=== PATIENT | female | born 1960 | race Hispanic/Latino ===

== ENCOUNTER 2018-06-14 13:30 | Emergency (ER) | payer SELFPAY ==
[2018-06-14 13:49] LABS: BASOPHILS % (AUTO) 0.7 % (0.0-5.0); EOSINOPHILS % (AUTO) 0.6 % (0.0-8.0); HEMATOCRIT 37.4 % (36-48); LYMPHOCYTES % (AUTO) 26.6 % (21.0-51.0); MEAN CORPUSCULAR HEMOGLOBIN 29.7 pg (27.0-33.0); MEAN CORPUSCULAR HGB CONC 33.8 g/dL (32.0-36.0); MEAN CORPUSCULAR VOLUME 87.7 fL (79-99); MONOCYTES % (AUTO) 7.3 % (3.0-13.0); NEUTROPHILS % (AUTO) 64.8 % (40.0-77.0); NUCLEATED RED BLOOD CELLS 0.1 % (0.0-0.19); PLATELET COUNT (AUTO) 204 K/uL (130-400); RED BLOOD CELL COUNT(AUTO) 4.27 MIL/uL (4.00-5.50); RED CELL DISTRIBUTION WIDTH 13.3 % (11.0-15.5); WHITE BLOOD COUNT (AUTO) 7.7 K/uL (4.8-10.8)
[2018-06-14 13:53] LABS: APPEARANCE,URINE Clear (CLEAR); BILIRUBIN,URINE Negative (NEGATIVE); COLOR,URINE Yellow (YELLOW); GLUCOSE, URINE (UA) Negative (NEGATIVE); KETONES,URINE Negative (NEGATIVE); LEUKOCYTE ESTERASE ,URINE Negative (NEGATIVE); NITRATE,URINE Negative (NEGATIVE); OCCULT BLOOD,URINE Negative (NEGATIVE); PROTEIN,URINE POS 1+ mg/dL (NEGATIVE); UROBILINOGEN,URINE 0.2 mg/dL (0.2-1.0)
[2018-06-14 13:58] LABS: CREATININE 1.2 mg/dL (0.5-1.5); POTASSIUM 3.1 mmol/L (3.5-5.1)
[2018-06-14 14:02] LABS: BILIRUBIN,TOTAL 0.4 mg/dL (0.2-1.0); TOTAL PROTEIN, SERUM 8.1 g/dL (6.0-8.3)
[2018-06-14 14:09] LABS: BACTERIA,URINE None Seen /HPF (None Seen); RBC,URINE 0-1 /HPF (0-1); WBC,URINE 0-1 /HPF (0-1)
[2018-06-14 14:10] LABS: SQUAMOUS EPITHELIAL CELL,UR 0-2 /HPF (0-2)
[2018-06-14] MEDS ORDERED: POTASSIUM CHLORIDE 20 MEQ ERTAB PO ONE (15:02)
== END 2018-06-14 15:54 | disposition home or self-care (01) ==
LOC: EDH 13:30
DX: E87.6 Hypokalemia (principal); M62.81 Muscle weakness (generalized)
CPT/HCPCS: 36415; 80053; 81001; 85025; 93005

== ENCOUNTER 2018-06-18 19:31 | Emergency (ER) | payer SELFPAY ==
[2018-06-18] MEDS ORDERED: ENALAPRILAT DIHYDRATE 1.25MG/ML 1ML VIAL IV ONE (19:54)
[2018-06-18] MEDS ORDERED: LISINOPRIL 5 MG TABLET ONE (19:55)
[2018-06-18 20:05] LABS: APPEARANCE,URINE Clear (CLEAR); BILIRUBIN,URINE Negative (NEGATIVE); COLOR,URINE Yellow (YELLOW); GLUCOSE, URINE (UA) Negative (NEGATIVE); KETONES,URINE Negative (NEGATIVE); LEUKOCYTE ESTERASE ,URINE Negative (NEGATIVE); NITRATE,URINE Negative (NEGATIVE); OCCULT BLOOD,URINE Trace (NEGATIVE); PH,URINE 7.5 (5.0-8.0); PROTEIN,URINE POS 1+ mg/dL (NEGATIVE); UROBILINOGEN,URINE 0.2 mg/dL (0.2-1.0)
[2018-06-18 20:11] LABS: CREATININE 1.4 mg/dL (0.5-1.5); POTASSIUM 4.3 mmol/L (3.5-5.1)
[2018-06-18 20:24] LABS: BACTERIA,URINE Rare /HPF (None Seen); RBC,URINE None Seen /HPF (0-1); SQUAMOUS EPITHELIAL CELL,UR 0-2 /HPF (0-2); WBC,URINE 0-1 /HPF (0-1)
[2018-06-18 20:26] LABS: T4 (THYROXINE) 11.6 ug/dL (4.7-13.3); THYROID STIMULATING HORMONE 3.03 uIU/mL (0.36-3.74)
[2018-06-18] MEDS ORDERED: METOPROLOL TARTRATE 1 MG/ML 5ML VIAL IV ONE (21:43)
[2018-06-18 22:25] LABS: AMPHET/METH SCREEN,URINE NEGATIVE (NEGATIVE); BARBITURATE SCREEN, URINE NEGATIVE (NEGATIVE); BENZODIAZEPINES SCREEN,URINE NEGATIVE (NEGATIVE); CANNABINOID SCREEN,URINE NEGATIVE (NEGATIVE); COCAINE SCREEN,URINE NEGATIVE (NEGATIVE); OPIATE SCREEN,URINE NEGATIVE (NEGATIVE); PHENCYCLIDINE SCREEN,URINE NEGATIVE (NEGATIVE)
[2018-06-18] MEDS ORDERED: CLONIDINE HCL 0.1 MG TABLET ONE (22:38)
[2018-06-18] MEDS ORDERED: HYDRALAZINE HCL 20 MG/ML VIAL ONE (22:39)
== END 2018-06-18 23:51 | disposition home or self-care (01) ==
LOC: EDH 19:31
DX: I16.0 Hypertensive urgency (principal); K21.9 Gastro-esophageal reflux disease without esophagitis
CPT/HCPCS: 36415; 70450; 71045; 80048; 80305; 81001; 84436; 84443; 84484; 93005; 96374; 96375; 99291; J0360; J3490 ×2

== ENCOUNTER 2018-09-10 02:56 | Emergency (ER) | payer OTHER ==
[~2018-09-10 02:56] MED LIST: LISI40TA4 PO; TYL3 PO; [UNRECOGNIZED DRUG - CODE] PO
[2018-09-10 03:17] LABS: APPEARANCE,URINE Clear (CLEAR); BILIRUBIN,URINE Negative (NEGATIVE); COLOR,URINE Yellow (YELLOW); GLUCOSE, URINE (UA) Negative (NEGATIVE); KETONES,URINE Negative (NEGATIVE); LEUKOCYTE ESTERASE ,URINE Negative (NEGATIVE); NITRATE,URINE Negative (NEGATIVE); OCCULT BLOOD,URINE Negative (NEGATIVE); PH,URINE 5.5 (5.0-8.0); PROTEIN,URINE POS 2+ mg/dL (NEGATIVE)
[2018-09-10 03:37] LABS: BASOPHILS % (AUTO) 0.7 % (0.0-5.0); EOSINOPHILS % (AUTO) 0.5 % (0.0-8.0); HEMATOCRIT 32.7 % (36-48); LYMPHOCYTES % (AUTO) 15.5 % (21.0-51.0); MEAN CORPUSCULAR HEMOGLOBIN 29.6 pg (27.0-33.0); MEAN CORPUSCULAR HGB CONC 33.4 g/dL (32.0-36.0); MEAN CORPUSCULAR VOLUME 88.7 fL (79-99); MONOCYTES % (AUTO) 5.8 % (3.0-13.0); NEUTROPHILS % (AUTO) 77.5 % (40.0-77.0); PLATELET COUNT (AUTO) 258 K/uL (130-400); RED BLOOD CELL COUNT(AUTO) 3.69 MIL/uL (4.00-5.50); RED CELL DISTRIBUTION WIDTH 14.5 % (11.0-15.5); WHITE BLOOD COUNT (AUTO) 11.3 K/uL (4.8-10.8)
[2018-09-10 03:52] LABS: INR 0.94 (0.85-1.15); PARTIAL THROMBOPLASTIN TIME 28.3 SEC (26.3-35.5); PROTHROMBIN TIME 9.9 SEC (9.6-11.6)
[2018-09-10 03:53] LABS: CREATININE 1.2 mg/dL (0.5-1.5); POTASSIUM 3.7 mmol/L (3.5-5.1)
[2018-09-10 03:58] LABS: ALBUMIN 3.7 g/dL (3.5-5.0); BILIRUBIN,TOTAL 0.2 mg/dL (0.2-1.0); TOTAL PROTEIN, SERUM 8.6 g/dL (6.0-8.3)
[2018-09-10] MEDS ORDERED: ONDANSETRON HCL 4 MG/2 ML VIAL ONE (04:13)
[2018-09-10] MEDS ORDERED: KETOROLAC TROMETHAMINE 30MG/ML ONE (04:13)
== END 2018-09-10 04:33 | disposition home or self-care (01) ==
LOC: EDH 02:56
DX: D25.9 Leiomyoma of uterus, unspecified (principal); I10 Essential (primary) hypertension; K21.9 Gastro-esophageal reflux disease without esophagitis; Z93.6 Other artificial openings of urinary tract status; Z79.899 Other long term (current) drug therapy
CPT/HCPCS: 36415; 74176; 80053; 81003; 82150; 82550; 84484; 85025; 85610; 85730; 93005; 96374; 96375; 99285; J1885; J2405

== ENCOUNTER 2018-10-30 06:49 | Day surgery (SDC) | payer MEDICAID ==
[2018-10-27 13:15] VITALS: BP 171/86
[2018-10-27 13:17] LABS: INR 0.92 (0.85-1.15); PARTIAL THROMBOPLASTIN TIME 25.9 SEC (26.3-35.5); PROTHROMBIN TIME 9.7 SEC (9.6-11.6)
--- NOTE | 2018-10-27 14:15 | NUR ---
UPDATED H/P WITH PLAN CALLED OFFICE OF [facility]. ([phone]) SPOKE WITH GHAZALA AND INFORMED HER THAT THE H&P DOES NOT HAVE A PLAN FOR THE PROCEDURE TO BE DONE (NEPHROSTOMY EXCHANGE). FAXED AN H&P FORM TO THE OFFICE ([phone])IN ORDER FOR [facility] TO UPDATE THE H&P WITH THE PLAN IN PLACE FOR THE PROCEDURE RO BE DONE.
[~2018-10-30] VITALS: Ht 152.4 cm; Wt 67.1 kg
[~2018-10-30 06:49] MED LIST changes: -TYL3 PO
[2018-10-30 07:03] VITALS: BP 166/87
[2018-10-30] MEDS ORDERED: SODIUM CHLORIDE 0.9% 1000ML 1,000 ML IV ONE (07:25)
[2018-10-30] MEDS ORDERED: SODIUM BICARB 50MEQ 50ML VIAL ONE (09:04)
[2018-10-30] MEDS ORDERED: LIDOCAINE HCL 1% MDV 50ML VIAL ONE (09:05)
[2018-10-30] MEDS ORDERED: IODIXANOL 320 MG/ML 100 ML VIAL ONE (09:05)
[2018-10-30 10:08] VITALS: BP 146/89
[2018-10-30 10:25] VITALS: BP 143/90
--- NOTE | 2018-10-30 10:43 | NUR ---
DISCHARGE PT DISCHARGED VIA WHEELCHAIR WITH SON. PT STABLE. NO COMPLAINTS MADE. NOT IN ANY APPARENT DISTRESS. NEPHROSTOMY TUBE DRAINING CLEAR YELLOW WITH JUST A VERY SLIGHT TINGE OF PINK NOTED, 100 ML.DRESSING LEFT FLANK DRY AND INTACT. DISCHARGE INSTRUCTIONS GIVEN TO P-T AND SON, VERBALIZED UNDERSTANDING.
== END 2018-10-30 10:43 | disposition home or self-care (01) ==
LOC: DAH 06:49
PROVIDERS: ATTEND Nurse Practitioner Family
DX: Z43.6 Encounter for attention to other artificial openings of urinary tract (principal); N13.2 Hydronephrosis with renal and ureteral calculous obstruction; I10 Essential (primary) hypertension; E66.8 Other obesity; Z68.30 Body mass index [BMI] 30.0-30.9, adult; Z79.899 Other long term (current) drug therapy; Z98.51 Tubal ligation status; Z82.49 Family history of ischemic heart disease and other diseases of the circulatory system; Z83.3 Family history of diabetes mellitus; Z82.3 Family history of stroke
CPT/HCPCS: 36415; 50435; 85610; 85730; A4215; A4216; A4221; A4222; A4223 ×3; A4606; C1729; C1769; J1644; J3490 ×2; J7030; Q9967

== ENCOUNTER 2018-11-02 08:54 | Emergency (ER) | payer MEDICAID ==
[2018-11-02] MEDS ORDERED: KETOROLAC TROMETHAMINE 30MG/ML ONE (09:37)
== END 2018-11-02 11:37 | disposition home or self-care (01) ==
LOC: EDH 08:54
DX: M54.42 Lumbago with sciatica, left side (principal); I10 Essential (primary) hypertension; K21.9 Gastro-esophageal reflux disease without esophagitis
CPT/HCPCS: 96374; 99284; J1885

== ENCOUNTER 2018-11-12 12:17 | Emergency (ER) | payer MEDICAID ==
[2018-11-12] MEDS ORDERED: ONDANSETRON HCL 4 MG/2 ML VIAL ONE ×2 (13:15→16:09)
[2018-11-12] MEDS ORDERED: MORPHINE SULFATE 4 MG/1ML SYG ONE (13:15)
[2018-11-12 13:27] LABS: BASOPHILS % (AUTO) 0.7 % (0.0-5.0); EOSINOPHILS % (AUTO) 0.3 % (0.0-8.0); HEMATOCRIT 31.8 % (36-48); LYMPHOCYTES % (AUTO) 14.8 % (21.0-51.0); MEAN CORPUSCULAR HEMOGLOBIN 30.3 pg (27.0-33.0); MEAN CORPUSCULAR HGB CONC 34.4 g/dL (32.0-36.0); MEAN CORPUSCULAR VOLUME 88.2 fL (79-99); MONOCYTES % (AUTO) 7.8 % (3.0-13.0); NEUTROPHILS % (AUTO) 76.4 % (40.0-77.0); PLATELET COUNT (AUTO) 148 K/uL (130-400); RED BLOOD CELL COUNT(AUTO) 3.61 MIL/uL (4.00-5.50); RED CELL DISTRIBUTION WIDTH 14.5 % (11.0-15.5); WHITE BLOOD COUNT (AUTO) 7.2 K/uL (4.8-10.8)
[2018-11-12 13:37] LABS: CREATININE 0.8 mg/dL (0.5-1.5); POTASSIUM 3.7 mmol/L (3.5-5.1)
[2018-11-12 13:42] LABS: ALBUMIN 3.6 g/dL (3.5-5.0); BILIRUBIN,TOTAL 0.3 mg/dL (0.2-1.0); TOTAL PROTEIN, SERUM 7.8 g/dL (6.0-8.3)
[2018-11-12 15:11] LABS: APPEARANCE,URINE CLOUDY (CLEAR); BILIRUBIN,URINE NEGATIVE (NEGATIVE); COLOR,URINE RED (YELLOW); GLUCOSE, URINE (UA) NEGATIVE (NEGATIVE); KETONES,URINE 5 mg/dL (NEGATIVE); LEUKOCYTE ESTERASE ,URINE TRACE (NEGATIVE); NITRATE,URINE POSITIVE (NEGATIVE); OCCULT BLOOD,URINE LARGE (NEGATIVE); PH,URINE 5.5 (5.0-8.0); PROTEIN,URINE 100 mg/dL (NEGATIVE)
[2018-11-12 15:26] LABS: BACTERIA,URINE None Seen /HPF (None Seen); RBC,URINE Full Field /HPF (0-1)
[2018-11-12 15:27] LABS: SQUAMOUS EPITHELIAL CELL,UR 0-2 /HPF (0-2)
[2018-11-12] MEDS ORDERED: CEFTRIAXONE SODIUM 1 GM ONE (16:09)
[2018-11-12] MEDS ORDERED: HYDRALAZINE HCL 20 MG/ML VIAL ONE (16:09)
[2018-11-12] MEDS ORDERED: KETOROLAC TROMETHAMINE 30MG/ML ONE (16:09)
[2018-11-12] MEDS ORDERED: SODIUM CHLORIDE 0.9% 1000ML 1,000 ML IV ONE (16:10)
== END 2018-11-12 16:50 | disposition home or self-care (01) ==
LOC: EDH 12:17
DX: N39.0 Urinary tract infection, site not specified (principal); I10 Essential (primary) hypertension; K21.9 Gastro-esophageal reflux disease without esophagitis; Z79.899 Other long term (current) drug therapy
CPT/HCPCS: 36415; 74176; 80053; 81001; 85025; 87088; 96374; 96375; 96376; 99285; J0360; J0696; J1885; J2270; J2405 ×2; J7030

== ENCOUNTER 2018-11-29 09:38 | Inpatient (IN) | payer MEDICAID ==
[~2018-11-29] VITALS: Ht 152.4 cm; Wt 63.2 kg
[2018-11-29] MEDS ORDERED: ONDANSETRON HCL 4 MG/2 ML VIAL ONE ×2 (10:12→14:02)
[2018-11-29] MEDS ORDERED: MORPHINE SULFATE 4 MG/1ML SYG ONE (10:12)
[2018-11-29] MEDS ORDERED: SODIUM CHLORIDE 0.9% 1000ML 1,000 ML IV ONE (10:13)
[2018-11-29 10:22] LABS: BASOPHILS % (AUTO) 0.5 % (0.0-5.0); EOSINOPHILS % (AUTO) 0.2 % (0.0-8.0); HEMATOCRIT 33.8 % (36-48); LYMPHOCYTES % (AUTO) 7.6 % (21.0-51.0); MEAN CORPUSCULAR HEMOGLOBIN 29.4 pg (27.0-33.0); MEAN CORPUSCULAR HGB CONC 33.5 g/dL (32.0-36.0); MEAN CORPUSCULAR VOLUME 87.7 fL (79-99); MONOCYTES % (AUTO) 4.6 % (3.0-13.0); NEUTROPHILS % (AUTO) 87.1 % (40.0-77.0); PLATELET COUNT (AUTO) 171 K/uL (130-400); RED BLOOD CELL COUNT(AUTO) 3.85 MIL/uL (4.00-5.50); RED CELL DISTRIBUTION WIDTH 13.9 % (11.0-15.5); WHITE BLOOD COUNT (AUTO) 9.5 K/uL (4.8-10.8)
[2018-11-29 10:38] LABS: CARBON DIOXIDE 27 mmol/L (21-32); CHLORIDE 104 mmol/L (101-111); CREATININE 1.1 mg/dL (0.5-1.5); GLOMERULAR FILTR. RATE CALC 54 mL/min (>60); GLUCOSE,RANDOM 114 mg/dL (70-105); POTASSIUM 4.2 mmol/L (3.5-5.1); SODIUM SERUM 140 mmol/L (136-145); UREA NITROGEN, BLOOD 17 mg/dL (7-18)
[2018-11-29 10:46] LABS: ALANINE AMINOTRANSFERASE 55 U/L (12-78); ALBUMIN 3.4 g/dL (3.5-5.0); ASPARTATE AMINOTRANSFERASE 33 U/L (10-37); BILIRUBIN,TOTAL 0.3 mg/dL (0.2-1.0)
[2018-11-29 10:53] LABS: LIPASE < 50 U/L (114-286)
[2018-11-29 11:26] LABS: APPEARANCE,URINE Clear (CLEAR); APPEARANCE,URINE Cloudy (CLEAR); BILIRUBIN,URINE Negative (NEGATIVE); COLOR,URINE Yellow (YELLOW); GLUCOSE, URINE (UA) Negative (NEGATIVE); KETONES,URINE Negative (NEGATIVE); LEUKOCYTE ESTERASE ,URINE Moderate (NEGATIVE); LEUKOCYTE ESTERASE ,URINE Trace (NEGATIVE); NITRATE,URINE Negative (NEGATIVE); OCCULT BLOOD,URINE Moderate (NEGATIVE); PH,URINE 5.5 (5.0-8.0); PROTEIN,URINE Negative (NEGATIVE); PROTEIN,URINE POS 1+ mg/dL (NEGATIVE); UROBILINOGEN,URINE 0.2 mg/dL (0.2-1.0)
[2018-11-29 11:36] LABS: BACTERIA,URINE Few /HPF (None Seen); RBC,URINE 0-1 /HPF (0-1); SQUAMOUS EPITHELIAL CELL,UR Rare /HPF (0-2); YEAST,URINE BUDDING Few /HPF (None Seen)
[2018-11-29 11:37] LABS: BACTERIA,URINE Rare /HPF (None Seen); SQUAMOUS EPITHELIAL CELL,UR Rare /HPF (0-2); WBC,URINE 0-1 /HPF (0-1)
[2018-11-29] MEDS ORDERED: MORPHINE SULFATE 2 MG/ML 1ML SYG ONE (14:02)
--- NOTE | 2018-11-29 17:00 | NUR ---
PATIENT ARRIVED FROM ER VIA STRETCHER. PT AAOX3. PAIN 2/10 DULL TO ABDOMEN AND BACK. NEPHROSTOMY TO LEFT SIDE. DRESSING CHANGED AT THIS TIME. PT ORIENTED TO ROOM. CALL LIGHT IN REACH. ADVISED PT TO CALL WITH ANY NEEDS OR CONCERNS.
[2018-11-29 17:11] VITALS: BP 132/71
[2018-11-29] MEDS ORDERED: ONDANSETRON HCL 4 MG/2 ML VIAL IVP PRN (17:15)
--- NOTE | 2018-11-29 19:20 | NUR ---
MD PACHECO ROUNDING ON PT. POC DISCUSSED. QUESTIONS INVITED AND ANSWERED.
[2018-11-29 19:29] VITALS: BP 156/75
--- NOTE | 2018-11-29 21:00 | NUR ---
Dr. Maher: Dr. Maher rounded see and talk to patient Plan of Care. Received verbal orders to start IV of NS at 65 ml/hour. Give patient Full liquid diet. She will be NPO breakfast on the as ordered by Dr. Savage.
--- NOTE | 2018-11-29 21:15 | NUR ---
Patient informed: Patient informed about the Surgery mentioned by Dr. Savage and she can eat full liquid diet.NPO breakfast on 12/01/18. Jello and apple juice given.
[2018-11-29] MEDS: SODIUM CHLORIDE 0.9% 1000ML 1,000 ML IV SCH (21:35)
[2018-11-29 23:23] VITALS: BP 134/70
[2018-11-30] MEDS: MORPHINE SULFATE 2 MG/ML 1ML SYG IVP PRN ×4 (00:26→21:10)
[2018-11-30 03:47] VITALS: BP 146/83
[2018-11-30 07:38] VITALS: BP 139/88
[2018-11-30] MEDS: LISINOPRIL 40 MG TABLET PO SCH (10:48)
[2018-11-30] MEDS: SODIUM CHLORIDE 0.9% 1000ML 1,000 ML IV SCH (10:59)
[2018-11-30 11:33] VITALS: BP 134/90
[2018-11-30] MEDS ORDERED: PEG 3350/NA SULF,BICARB,CL/KCL 4000 ML SOLN PO ONE (12:00)
--- NOTE | 2018-11-30 12:39 | NUR ---
DC PLAN VISITED WITH PATIENT. PATIENT LIVES WITH SPOUSE. INDEPENDENT ABLE TO PERFORM ADL'S. PATIENT HAS NO SERVICES OR DME'S. FEELS SAFE TO RETURN HOME. Addendum: 11/30/18 at 1240 by MONICA ANTHONY RN CM Amended: Links added.
--- NOTE | 2018-11-30 14:00 | NUR ---
MD REHMAN ROUNDING ON PATIENT. POC DISCUSSED. PATIENT VOICED UNDERSTANDING.
[2018-11-30] MEDS: CEFTRIAXONE SODIUM 1 GM IVP SCH (15:16)
[2018-11-30] MEDS: METRONIDAZOLE 500 MG TABLET PO SCH ×3 (16:19→23:41)
[2018-11-30] MEDS: NEOMYCIN SULFATE 500 MG TAB PO SCH ×3 (16:21→23:50)
[2018-11-30 19:20] VITALS: BP 129/70
[2018-11-30] MEDS: FAMOTIDINE 20MG TAB 20 MG TAB PO SCH (21:09)
[2018-11-30] MEDS ORDERED: MEPERIDINE-PF 50 MG/ML SYG IM PRN (21:30)
[2018-11-30] MEDS ORDERED: PROMETHAZINE HCL 25 MG/ML 1ML AMPULE IM PRN (21:30)
[2018-11-30 23:25] VITALS: BP 137/69
[2018-11-30] MEDS ORDERED: METRONIDAZOLE 500 MG TABLET ONE (23:34)
[2018-12-01] VITALS (27 sets, daily range): BP systolic 108–175; BP diastolic 65–97
[2018-12-01] MEDS: SODIUM CHLORIDE 0.9% 1000ML 1,000 ML IV SCH ×4 (02:18→23:47)
--- NOTE | 2018-12-01 06:20 | NUR ---
LEFT NEPHROSTOMY TUBE IN PLACE Addendum: 12/01/18 at 0624 by AURA BAZAN LVN Amended: Links added.
[2018-12-01] MEDS: FAMOTIDINE 20MG TAB 20 MG TAB PO SCH (08:41)
[2018-12-01] MEDS: LISINOPRIL 40 MG TABLET PO SCH (08:41)
[2018-12-01] MEDS: DILTIAZEM HCL 420 MG PO SCH (08:44)
[2018-12-01] MEDS ORDERED: LACTATED RINGERS 1000ML 1,000 ML IV ONE (08:57)
[2018-12-01] MEDS ORDERED: PROPOFOL 10 MG/ML 20ML VIAL IV ONE (09:12)
[2018-12-01] MEDS ORDERED: LIDOCAINE PF 2% 5ML ABBOJECT ONE (09:12)
[2018-12-01] MEDS ORDERED: MIDAZOLAM HCL 1 MG/ML 2ML VIAL ONE ×4 (09:12→11:34)
[2018-12-01] MEDS ORDERED: ROCURONIUM 10MG/1ML SYR 10 MG/ML ML ONE ×3 (09:13→11:56)
[2018-12-01] MEDS ORDERED: FENTANYL CITRATE PF 50 MCG/1 ML 5ML AMP IV ONE (09:13)
[2018-12-01] MEDS ORDERED: NEOSTIGMINE 5MG/5ML SYR IV ONE (09:43)
[2018-12-01] MEDS ORDERED: GLYCOPYRROLATE 1 MG/5 ML SYRINGE ONE (09:43)
[2018-12-01] MEDS ORDERED: ONDANSETRON HCL 4 MG/2 ML VIAL ONE (09:43)
[2018-12-01] MEDS ORDERED: DEXAMETHASONE SOD PHOSPHATE 10MG/ML 1ML VIAL ONE (09:43)
[2018-12-01] MEDS ORDERED: EPHEDRINE SULFATE 50 MG/ML AMPULE ONE (09:58)
[2018-12-01] MEDS ORDERED: ALBUMIN (HUMAN) 5% 500 ML IV ONE (10:22)
[2018-12-01] MEDS ORDERED: HETASTARCH IN 0.9 % NACL 500 ML IV ONE ×2 (10:47→11:39)
[2018-12-01 10:50] LABS: MEAN CORPUSCULAR HEMOGLOBIN 29.3 pg (27.0-33.0); MEAN CORPUSCULAR HGB CONC 32.4 g/dL (32.0-36.0); MEAN CORPUSCULAR VOLUME 90.4 fL (79-99); PLATELET COUNT (AUTO) 55 K/uL (130-400); RED BLOOD CELL COUNT(AUTO) 2.21 MIL/uL (4.00-5.50); RED CELL DISTRIBUTION WIDTH 13.7 % (11.0-15.5); WHITE BLOOD COUNT (AUTO) 14.5 K/uL (4.8-10.8)
--- NOTE | 2018-12-01 11:20 | NUR ---
Dr Savage notified of labs @1120 while performing procedure HGB=6.5 HCT=26.0 PLATELETS =55
[2018-12-01] MEDS ORDERED: COAGULATION FACTOR VIIA RECOMB 1 MG VIAL IV SCH (11:30)
[2018-12-01] MEDS ORDERED: CEFAZOLIN SODIUM 1 GM VIAL ONE (11:39)
[2018-12-01 11:41] LABS: ABG BASE EXCESS -8.4 mmol/L (-2.0-3.0); ABG HCO3 18.7 mmol/L (21.0-28.0); ABG OXYGEN SATURATION 84.1 % (95.0-99.0); ABG PCO2 46 mmHg (32-45)
[2018-12-01] MEDS ORDERED: SODIUM BICARB 8.4% 50ML SYRINGE ONE (11:48)
[2018-12-01 12:13] LABS: ABG BASE EXCESS 7.2 mmol/L (-2.0-3.0); ABG HCO3 30.8 mmol/L (21.0-28.0); ABG OXYGEN SATURATION 98.4 % (95.0-99.0); ABG PCO2 39 mmHg (32-45)
--- NOTE | 2018-12-01 12:15 | NUR ---
MD VISIT Dr. Calvin at bedside spoke with son and gave update on patients's status. Son made aware patient was transfused and made aware that she is very sick and will probably be transferred to ICU. son given opportunity to ask questions and answered.
[2018-12-01 12:31] LABS: INR 0.95 (0.85-1.15); PARTIAL THROMBOPLASTIN TIME 26.8 SEC (26.3-35.5)
[2018-12-01 12:35] LABS: ABG BASE EXCESS 5.1 mmol/L (-2.0-3.0); ABG HCO3 29.7 mmol/L (21.0-28.0); ABG OXYGEN SATURATION 98.6 % (95.0-99.0); ABG PCO2 44 mmHg (32-45)
[2018-12-01] MEDS ORDERED: IODIXANOL 320 MG/ML 100 ML VIAL ONE ×3 (12:36→13:06)
[2018-12-01] MEDS ORDERED: LIDOCAINE HCL 1% MDV 50ML VIAL ONE (12:37)
[2018-12-01 12:47] LABS: BASOPHILS % (AUTO) 0.3 % (0.0-5.0); HEMATOCRIT 25.6 % (36-48); LYMPHOCYTES % (AUTO) 4.9 % (21.0-51.0); MEAN CORPUSCULAR HEMOGLOBIN 29.4 pg (27.0-33.0); MEAN CORPUSCULAR HGB CONC 34.7 g/dL (32.0-36.0); MEAN CORPUSCULAR VOLUME 84.8 fL (79-99); NEUTROPHILS % (AUTO) 88.8 % (40.0-77.0); PLATELET COUNT (AUTO) 126 K/uL (130-400); RED BLOOD CELL COUNT(AUTO) 3.02 MIL/uL (4.00-5.50); RED CELL DISTRIBUTION WIDTH 15.4 % (11.0-15.5); WHITE BLOOD COUNT (AUTO) 7.8 K/uL (4.8-10.8)
[2018-12-01 12:57] LABS: CREATININE 0.8 mg/dL (0.5-1.5); POTASSIUM 3.6 mmol/L (3.5-5.1)
[2018-12-01 12:59] LABS: ALBUMIN 2.2 g/dL (3.5-5.0); BILIRUBIN,TOTAL 0.7 mg/dL (0.2-1.0); TOTAL PROTEIN, SERUM 4.3 g/dL (6.0-8.3)
[2018-12-01 13:14] LABS: ABG BASE EXCESS 2.8 mmol/L (-2.0-3.0); ABG HCO3 28.3 mmol/L (21.0-28.0); ABG OXYGEN SATURATION 98.6 % (95.0-99.0); ABG PCO2 48 mmHg (32-45)
--- NOTE | 2018-12-01 13:55 | NUR ---
DR. REYES IN TO TALK TO FAMILY OF PATIENT AND SPOKE TO TWO OF HER SONS AND ALLOWED FAMILY TO ASK QUESTIONS. SONS INFORMED OF CRITICAL STATE OF PATIENT AND PATIENT WILL BE GOING TO INTENSIVE CARE UNIT AND WILL BE FOLLOWED BY SEVERAL DOCTORS. NURSE HOME CARE [facility], LEANDRO MACKEY WILL BE TAKING FAMILY TO INTENSIVE CARE TO WAIT FOR PATIENT TO BE TRANSFERED THERE.
[2018-12-01] MEDS: NEOMYCIN SULFATE 500 MG TAB PO SCH ×2 (14:00→21:00)
--- NOTE | 2018-12-01 14:20 | NUR ---
DR. RUIZ WAS CALLED PER DR. REYES'S ORDER TO NOTIFY HIM OF PATIENT'S TRANSFER TO ICU. DR. RUIZ WAS CALLED AND INDICATED TO NOTIFY [facility]. CALLED [employer], JENNA CARTER RN TO FIND OUT WHO WAS [facility] AND INDICATED THEY HAD ALREADY BEEN NOTIFIED BY OTHER DOCTOR ON CASE.
--- NOTE | 2018-12-01 14:20 | NUR ---
Physician Traying Dr. Savage at bedside when patient arrived at 1420. Addendum: 12/01/18 at 1541 by ROBBIN SAUCEDO RN Dr. Buckner called for orders and were inputed as ordered Addendum: 12/01/18 at 1545 by ROBBIN SAUCEDO RN Dr. Anderson called at 1532 notified of consult
[2018-12-01] MEDS ORDERED: FENTANYL 2500MCG+NS 250ML 250 ML IV ONE (14:26)
[2018-12-01] MEDS ORDERED: LIDOCAINE HCL-MPF 1% 2ML VIAL IV PRN (14:45)
[2018-12-01 15:40] LABS: HEMATOCRIT 31.9 % (36-48); MEAN CORPUSCULAR HEMOGLOBIN 29.3 pg (27.0-33.0); MEAN CORPUSCULAR HGB CONC 35.1 g/dL (32.0-36.0); MEAN CORPUSCULAR VOLUME 83.6 fL (79-99); PLATELET COUNT (AUTO) 156 K/uL (130-400); RED BLOOD CELL COUNT(AUTO) 3.81 MIL/uL (4.00-5.50); RED CELL DISTRIBUTION WIDTH 15.6 % (11.0-15.5); WHITE BLOOD COUNT (AUTO) 8.5 K/uL (4.8-10.8)
[2018-12-01] MEDS: MIDAZOLAM 100MG-0.9% NS 100ML 100 ML IV PRN (15:46)
[2018-12-01] MEDS: METRONIDAZOLE 500 MG TABLET PO SCH (15:52)
[2018-12-01] MEDS: CEFTRIAXONE SODIUM 1 GM IVP SCH (15:52)
[2018-12-01 15:57] LABS: INR 0.89 (0.85-1.15); POTASSIUM 3.1 mmol/L (3.5-5.1); PROTHROMBIN TIME 9.4 SEC (9.6-11.6)
[2018-12-01 16:01] LABS: ALBUMIN 3.4 g/dL (3.5-5.0); BILIRUBIN,TOTAL 1.7 mg/dL (0.2-1.0); TOTAL PROTEIN, SERUM 6.5 g/dL (6.0-8.3)
[2018-12-01] MEDS: MAGNESIUM 2GM PREMIX 50ML 50 ML IV PRN (16:34)
[2018-12-01] MEDS: POTASSIUM CHLORIDE 20MEQ/100ML 100 ML IV PRN ×2 (16:34→18:37)
[2018-12-01 16:43] LABS: ABG BASE EXCESS 4.7 mmol/L (-2.0-3.0); ABG OXYGEN SATURATION 97.1 % (95.0-99.0); ABG PCO2 26 mmHg (32-45)
[2018-12-01 16:52] LABS: LYMPHOCYTES % (MANUAL) 6 % (22-44); MAN.DIFF COMMENT-IMPRESSION MANUAL DIFFERENTIAL; MONOCYTES % (MANUAL) 6 % (2-9); SEGMENTED NEUTROPHILS % 88 % (40-70)
[2018-12-01 16:53] LABS: PLATELET MORPHOLOGY COMMENT ADEQUATE
--- NOTE | 2018-12-01 16:58 | NUR ---
CM note met with patients olvin Roque and family who state are requesting for son Jose Roque who is currently 3rd green party contractor for a [employer] in [facility]. he corporate office is [phone] Dept D. he is on [facility] working for the [employer]. call made to Radha gayle at [facility] [phone] and updated on pt's condition critical and also request for son to come and visit pt. due to current condition. states she will start the process in order to facilitate and provided CASE # [id number]. states to provide to family as well and they can call to find out the status of request. provide information to olvin Dorantes and verbalizes understanding. updated primary nurse on above.
[2018-12-01] MEDS: PHARMACY COMMUNICATION MISC SCH ×2 (19:15→23:15)
--- NOTE | 2018-12-01 19:20 | NUR ---
Received bedside report pt is intubated and Sedated S/P TaHBSO today and was given multiple blood products.Potassium coverage ongoing at this time.Family here to bedside.Abdominal dressing noted to have some oozing and as per outgoing nurse surgeon is aware.Wiull continue to monitor pt.
--- NOTE | 2018-12-01 19:50 | NUR ---
Pt. noted to be moving arms and both feet will titrate up the fentanyl drip.Son to bedside.Will continue to monitor pt.
[2018-12-01] MEDS: PANTOPRAZOLE 40 MG/VIAL IVP SCH (21:59)
[2018-12-01] MEDS: METRONIDAZOLE 500MG/100ML BAG 100 ML IV SCH (22:00)
[2018-12-01 22:42] LABS: HEMATOCRIT 36.7 % (36-48)
[2018-12-01 22:49] LABS: MAGNESIUM 1.9 mg/dL (1.80-2.40); POTASSIUM 3.8 mmol/L (3.5-5.1)
[2018-12-01 23:38] LABS: PARTIAL THROMBOPLASTIN TIME 22.9 SEC (26.3-35.5); PROTHROMBIN TIME 10.5 SEC (9.6-11.6)
[2018-12-02] VITALS (70 sets, daily range): BP systolic 76–147; BP diastolic 48–123
[2018-12-02] MEDS: MIDAZOLAM 100MG-0.9% NS 100ML 100 ML IV PRN ×3 (00:21→19:23)
[2018-12-02] MEDS: FENTANYL 2500MCG+NS 250ML 250 ML IV PRN ×3 (00:21→21:25)
[2018-12-02 00:22] LABS: CORRECTED WHITE BLOOD COUNT 9.7 K/uL (4.5-11.0); RED BLOOD CELL COUNT(AUTO) 4.44 MIL/uL (4.00-5.50); WHITE BLOOD COUNT (AUTO) 9.7 K/uL (4.8-10.8)
[2018-12-02 00:23] LABS: BASOPHILS % (AUTO) 0.1 % (0.0-5.0); EOSINOPHILS % (AUTO) 0.1 % (0.0-8.0); LYMPHOCYTES % (AUTO) 5.1 % (21.0-51.0); MEAN CORPUSCULAR HEMOGLOBIN 29.2 pg (27.0-33.0); MEAN CORPUSCULAR HGB CONC 34.8 g/dL (32.0-36.0); MEAN CORPUSCULAR VOLUME 83.7 fL (79-99); MONOCYTES % (AUTO) 12.1 % (3.0-13.0); NEUTROPHILS % (AUTO) 82.6 % (40.0-77.0); PLATELET COUNT (AUTO) 168 K/uL (130-400); RED CELL DISTRIBUTION WIDTH 15.7 % (11.0-15.5)
[2018-12-02] MEDS: MAGNESIUM 2GM PREMIX 50ML 50 ML IV PRN (00:45)
--- NOTE | 2018-12-02 00:59 | NUR ---
HERACLIO Noland stoner out for [employer] was notified of critical lab result no new order received. was also paged pending to call back.
--- NOTE | 2018-12-02 01:50 | NUR ---
called back and notified of critical D-Dimer result and V/S no new order received.
[2018-12-02 04:17] LABS: BASOPHILS % (AUTO) 0.1 % (0.0-5.0); HEMATOCRIT 32.8 % (36-48); LYMPHOCYTES % (AUTO) 6.7 % (21.0-51.0); MEAN CORPUSCULAR HEMOGLOBIN 29.3 pg (27.0-33.0); MEAN CORPUSCULAR HGB CONC 34.8 g/dL (32.0-36.0); MEAN CORPUSCULAR VOLUME 84.4 fL (79-99); MONOCYTES % (AUTO) 11.7 % (3.0-13.0); NEUTROPHILS % (AUTO) 81.5 % (40.0-77.0); PLATELET COUNT (AUTO) 155 K/uL (130-400); RED BLOOD CELL COUNT(AUTO) 3.89 MIL/uL (4.00-5.50); RED CELL DISTRIBUTION WIDTH 15.8 % (11.0-15.5); WHITE BLOOD COUNT (AUTO) 11.6 K/uL (4.8-10.8)
[2018-12-02 04:29] LABS: PROTHROMBIN TIME 10.5 SEC (9.6-11.6)
[2018-12-02 04:32] LABS: B-TYPE NATRIURETIC PEPTIDE 134 pg/mL (0-100)
[2018-12-02 04:34] LABS: ALBUMIN 2.6 g/dL (3.5-5.0); CREATININE 1.5 mg/dL (0.5-1.5); MAGNESIUM 2.7 mg/dL (1.80-2.40); PHOSPHORUS 4.5 mg/dL (2.5-4.9); POTASSIUM 3.9 mmol/L (3.5-5.1); TOTAL PROTEIN, SERUM 5.4 g/dL (6.0-8.3)
--- NOTE | 2018-12-02 04:40 | NUR ---
Pt. appears more calm and comfortable,remained on fentanyl and versed drip.D-Dimer result is still critical but trending down.
[2018-12-02] MEDS: METRONIDAZOLE 500MG/100ML BAG 100 ML IV SCH ×3 (05:43→21:05)
[2018-12-02 06:51] LABS: ABG BASE EXCESS 3.6 mmol/L (-2.0-3.0); ABG HCO3 25.2 mmol/L (21.0-28.0); ABG OXYGEN SATURATION 98.4 % (95.0-99.0); ABG PCO2 30 mmHg (32-45)
--- NOTE | 2018-12-02 07:01 | NUR ---
Peak flow decreased from 65 to 55 in order to achieve shorter expiratory time. I:E from ~1:4 down to ~1:2.6 Addendum: 12/02/18 at 0703 by ALICIA ECHEVERRIA RT Amended: Links added.
[2018-12-02 08:21] LABS: HEMATOCRIT 33.7 % (36-48)
[2018-12-02] MEDS: PANTOPRAZOLE 40 MG/VIAL IVP SCH ×2 (08:58→21:07)
[2018-12-02] MEDS: SODIUM CHLORIDE 0.9% 1000ML 1,000 ML IV SCH (08:58)
[2018-12-02] MEDS: NEOMYCIN SULFATE 500 MG TAB PO SCH ×4 (08:58→21:07)
[2018-12-02] MEDS: DILTIAZEM HCL 420 MG PO SCH (09:00)
[2018-12-02] MEDS: LISINOPRIL 40 MG TABLET PO SCH (09:00)
--- NOTE | 2018-12-02 09:08 | NUR ---
PO meds held due to recent abdominal surgery pending rounding with physician and surgeon to addressed if okay to give meds through og tube Addendum: 12/02/18 at 0919 by ROBBIN SAUCEDO RN Dr. Janette carias at 0914. To asked about use of the NG tube for meds
--- NOTE | 2018-12-02 09:45 | NUR ---
Physician rounding Dr. Calvin at beside around 0936 ordered for a urine culture and blood cultures. Also stated it was okay to use the OG tube to administer medication. Addendum: 12/02/18 at 1025 by ROBBIN SAUCEDO RN Dr. Polk rounded at around 1000 informed status of the patient. no orders received. Addendum: 12/02/18 at 1027 by ROBBIN SAUCEDO RN [facility] rounded and reviewed plan of care. Was made aware about the patients signs of sepsis. she collaborated with Dr. Pagan and orders were entered.
[2018-12-02] MEDS: NOREPINEPHRINE 4MG/NS 250ML 250 ML IV SCH ×2 (11:46→22:52)
[2018-12-02] MEDS: MORPHINE SULFATE 2 MG/ML 1ML SYG IVP PRN (11:59)
[2018-12-02 12:30] LABS: HEMATOCRIT 29.9 % (36-48)
[2018-12-02] MEDS: CEFTRIAXONE SODIUM 1 GM IVP SCH (14:32)
[2018-12-02 16:33] LABS: HEMATOCRIT 29.7 % (36-48)
[2018-12-02 20:24] LABS: HEMATOCRIT 29.8 % (36-48)
[2018-12-03] VITALS (64 sets, daily range): BP systolic 91–135; BP diastolic 60–80
[2018-12-03 00:14] LABS: HEMATOCRIT 28.9 % (36-48)
[2018-12-03] MEDS: SODIUM CHLORIDE 0.9% 1000ML 1,000 ML IV SCH ×2 (02:11→22:55)
[2018-12-03 04:02] LABS: BASOPHILS % (AUTO) 0.1 % (0.0-5.0); HEMATOCRIT 28.8 % (36-48); LYMPHOCYTES % (AUTO) 11.8 % (21.0-51.0); MEAN CORPUSCULAR HGB CONC 33.7 g/dL (32.0-36.0); MEAN CORPUSCULAR VOLUME 85.8 fL (79-99); MONOCYTES % (AUTO) 8.6 % (3.0-13.0); NEUTROPHILS % (AUTO) 79.5 % (40.0-77.0); NUCLEATED RED BLOOD CELLS 0.1 % (0.0-0.19); PLATELET COUNT (AUTO) 164 K/uL (130-400); RED BLOOD CELL COUNT(AUTO) 3.36 MIL/uL (4.00-5.50); RED CELL DISTRIBUTION WIDTH 16.2 % (11.0-15.5); WHITE BLOOD COUNT (AUTO) 16.1 K/uL (4.8-10.8)
[2018-12-03 04:09] LABS: CREATININE 2.4 mg/dL (0.5-1.5); POTASSIUM 4.2 mmol/L (3.5-5.1)
[2018-12-03 04:14] LABS: ALBUMIN 2.1 g/dL (3.5-5.0); BILIRUBIN,TOTAL 0.4 mg/dL (0.2-1.0); MAGNESIUM 2.5 mg/dL (1.80-2.40); PHOSPHORUS 5.3 mg/dL (2.5-4.9); TOTAL PROTEIN, SERUM 5.3 g/dL (6.0-8.3)
[2018-12-03] MEDS: MIDAZOLAM 100MG-0.9% NS 100ML 100 ML IV PRN ×2 (06:21→17:35)
[2018-12-03] MEDS: METRONIDAZOLE 500MG/100ML BAG 100 ML IV SCH ×3 (06:21→21:02)
[2018-12-03 07:28] LABS: ABG BASE EXCESS -1.2 mmol/L (-2.0-3.0); ABG HCO3 21.5 mmol/L (21.0-28.0); ABG PCO2 31 mmHg (32-45)
[2018-12-03] MEDS: LISINOPRIL 40 MG TABLET PO SCH (08:05)
[2018-12-03] MEDS: DILTIAZEM HCL 420 MG PO SCH (08:05)
[2018-12-03] MEDS: NEOMYCIN SULFATE 500 MG TAB PO SCH ×3 (08:21→20:20)
[2018-12-03] MEDS: PANTOPRAZOLE 40 MG/VIAL IVP SCH ×2 (08:21→20:20)
[2018-12-03] MEDS: NOREPINEPHRINE 4MG/NS 250ML 250 ML IV SCH ×2 (08:21→23:46)
[2018-12-03] MEDS: FENTANYL 2500MCG+NS 250ML 250 ML IV PRN ×2 (08:22→20:09)
[2018-12-03] MEDS ORDERED: LACTATED RINGERS 1000ML IV SCH (12:45)
--- NOTE | 2018-12-03 12:55 | NUR ---
DR AVILA IN TO SPEAK WITH PATIENT'S FAMILY MEMBERS. PLAN FOR SURGERY TOMORROW. PLAN EXPLAINED AND ALL QUESTIONS ANSWERED. ASKED TO HAVE DR REYES NOTIFIED.
[2018-12-03] MEDS: LACTATED RINGERS 1000ML 1,000 ML IV SCH (13:18)
--- NOTE | 2018-12-03 13:34 | NUR ---
DR Jorgito HORNE PAGED VIA ANSWERING SERVICE. SPOKE TO ANIKA
[2018-12-03] MEDS: CEFTRIAXONE SODIUM 1 GM IVP SCH (15:29)
--- NOTE | 2018-12-03 18:48 | NUR ---
DR BARTON NOTIFIED OF TOMORROW'S SURGERY. NO NEW ORDERS.
[2018-12-03 21:45] LABS: HEMATOCRIT 27.9 % (36-48)
[2018-12-03] MEDS ORDERED: LACTATED RINGERS 1000ML 1,000 ML IV ONE (22:02)
--- NOTE | 2018-12-03 22:16 | NUR ---
Assumed care at 1900. AM shift reported scheduled procedure in AM. Consent has been obtained. Physicians have been notified. Of note, patient tachycardic since before change of shift. Patient repositioned, cleaned, dressings reinforced, and we are turning Q2 hours. [employer] has been notified. Merry Broderick ordered a 500mL LR bolus. Actively running. Will continue to monitor.
[2018-12-04] VITALS (72 sets, daily range): BP systolic 81–165; BP diastolic 48–82
[2018-12-04 03:47] LABS: HEMATOCRIT 27.1 % (36-48); MEAN CORPUSCULAR HEMOGLOBIN 28.9 pg (27.0-33.0); MEAN CORPUSCULAR HGB CONC 32.8 g/dL (32.0-36.0); MEAN CORPUSCULAR VOLUME 88.1 fL (79-99); PLATELET COUNT (AUTO) 156 K/uL (130-400); RED BLOOD CELL COUNT(AUTO) 3.07 MIL/uL (4.00-5.50); RED CELL DISTRIBUTION WIDTH 16.3 % (11.0-15.5); WHITE BLOOD COUNT (AUTO) 15.1 K/uL (4.8-10.8)
[2018-12-04 04:00] LABS: INR 0.95 (0.85-1.15); PARTIAL THROMBOPLASTIN TIME 28.2 SEC (26.3-35.5)
[2018-12-04 04:03] LABS: ALBUMIN 1.8 g/dL (3.5-5.0); BILIRUBIN,TOTAL 0.4 mg/dL (0.2-1.0); MAGNESIUM 2.3 mg/dL (1.80-2.40); PHOSPHORUS 4.2 mg/dL (2.5-4.9); POTASSIUM 4.5 mmol/L (3.5-5.1); TOTAL PROTEIN, SERUM 5.3 g/dL (6.0-8.3)
[2018-12-04 04:15] LABS: ABG HCO3 20.7 mmol/L (21.0-28.0); ABG OXYGEN SATURATION 95.5 % (95.0-99.0); ABG PCO2 37 mmHg (32-45)
[2018-12-04] MEDS: MIDAZOLAM 100MG-0.9% NS 100ML 100 ML IV PRN ×2 (04:51→14:50)
[2018-12-04] MEDS: METRONIDAZOLE 500MG/100ML BAG 100 ML IV SCH ×3 (05:08→20:37)
[2018-12-04 05:33] LABS: CREATININE,URINE RANDOM 174 mg/dL (30-135); SODIUM,URINE RANDOM 22 mmol/l (40-220)
[2018-12-04] MEDS: FENTANYL 2500MCG+NS 250ML 250 ML IV PRN ×2 (07:08→18:24)
[2018-12-04] MEDS: DILTIAZEM HCL 420 MG PO SCH (08:25)
[2018-12-04] MEDS: NEOMYCIN SULFATE 500 MG TAB PO SCH ×2 (08:25→13:26)
[2018-12-04] MEDS ORDERED: ZOSYN 3.375GM+NS 50ML 50 ML IV ONE (08:48)
[2018-12-04] MEDS: PANTOPRAZOLE 40 MG/VIAL IVP SCH ×2 (09:08→20:35)
[2018-12-04 11:02] LABS: APPEARANCE,URINE Turbid (CLEAR); BILIRUBIN,URINE Small (NEGATIVE); COLOR,URINE Dark Yellow (YELLOW); GLUCOSE, URINE (UA) Negative (NEGATIVE); KETONES,URINE Negative (NEGATIVE); LEUKOCYTE ESTERASE ,URINE Moderate (NEGATIVE); NITRATE,URINE Negative (NEGATIVE); OCCULT BLOOD,URINE Large (NEGATIVE); PROTEIN,URINE POS 1+ mg/dL (NEGATIVE); UROBILINOGEN,URINE 0.2 mg/dL (0.2-1.0)
[2018-12-04 11:03] LABS: APPEARANCE,URINE Turbid (CLEAR); BILIRUBIN,URINE Small (NEGATIVE); COLOR,URINE Dark Yellow (YELLOW); GLUCOSE, URINE (UA) Negative (NEGATIVE); KETONES,URINE Negative (NEGATIVE); LEUKOCYTE ESTERASE ,URINE Moderate (NEGATIVE); NITRATE,URINE Negative (NEGATIVE); OCCULT BLOOD,URINE Large (NEGATIVE); PROTEIN,URINE POS 2+ mg/dL (NEGATIVE)
[2018-12-04 11:20] LABS: BACTERIA,URINE Few /HPF (None Seen)
[2018-12-04 11:21] LABS: SQUAMOUS EPITHELIAL CELL,UR None Seen /HPF (0-2); YEAST,URINE BUDDING Many /HPF (None Seen)
[2018-12-04 11:25] LABS: BACTERIA,URINE Few /HPF (None Seen)
[2018-12-04] MEDS ORDERED: SODIUM CHLORIDE 0.9% 1000ML 1,000 ML IV SCH (11:30)
[2018-12-04] MEDS: NOREPINEPHRINE 4MG/NS 250ML 250 ML IV SCH (12:20)
[2018-12-04] MEDS: ZOSYN 3.375GM+NS 50ML 50 ML IV SCH ×2 (12:20→20:36)
[2018-12-04] MEDS ORDERED: PROPOFOL 10 MG/ML 20ML VIAL IV ONE (14:47)
[2018-12-04] MEDS ORDERED: ROCURONIUM 10MG/1ML SYR 10 MG/ML ML ONE ×2 (14:47→16:57)
--- NOTE | 2018-12-04 15:00 | NUR ---
PATIENT TO OR PATIENT TAKEN TO OR AT THIS TIME; FAMILY AT BEDSIDE
[2018-12-04 15:38] LABS: ABG BASE EXCESS -5.9 mmol/L (-2.0-3.0); ABG OXYGEN SATURATION 98.3 % (95.0-99.0); ABG PCO2 35 mmHg (32-45)
[2018-12-04] MEDS ORDERED: BACITRACIN 50,000 UNIT VIAL ONE (15:40)
[2018-12-04] MEDS ORDERED: FENTANYL CITRATE PF 50 MCG/1 ML 2ML VIAL ONE ×3 (15:55→17:27)
[2018-12-04] MEDS ORDERED: MEPERIDINE-PF 25 MG/ML SYG ONE (16:00)
[2018-12-04] MEDS ORDERED: PHENYLEPHRINE HCL 10 MG/ML 1ML VIAL IV ONE (16:09)
[2018-12-04 16:49] LABS: ABG BASE EXCESS -11.1 mmol/L (-2.0-3.0); ABG HCO3 14.5 mmol/L (21.0-28.0); ABG OXYGEN SATURATION 95.2 % (95.0-99.0); ABG PCO2 31 mmHg (32-45)
[2018-12-04] MEDS ORDERED: POTASSIUM CHLORIDE 20MEQ/100ML 100 ML IV ONE (17:08)
--- NOTE | 2018-12-04 18:00 | NUR ---
PATIENT ARRIVED FROM OR AT THIS TIME; LEFT RADIAL A LINE NOTED; WOUND VAC NOTED TO ABD; SEAL INTACT; OGT SET UP TO LIS; VS STABLE AT THIS TIME; WILL CONTINUE TO MONITOR
[2018-12-04] MEDS: LACTATED RINGERS 1000ML 1,000 ML IV SCH ×2 (18:10→20:37)
[2018-12-04 18:24] LABS: ABG HCO3 20.8 mmol/L (21.0-28.0); ABG OXYGEN SATURATION 98.2 % (95.0-99.0); ABG PCO2 37 mmHg (32-45)
[2018-12-04] MEDS ORDERED: PHARMACY COMMUNICATION MISC SCH (20:30)
[2018-12-05] VITALS (63 sets, daily range): BP systolic 82–164; BP diastolic 40–83
[2018-12-05 01:09] LABS: ABG BASE EXCESS -3.1 mmol/L (-2.0-3.0); ABG HCO3 21.4 mmol/L (21.0-28.0); ABG OXYGEN SATURATION 99.3 % (95.0-99.0); ABG PCO2 37 mmHg (32-45)
[2018-12-05] MEDS: ZOSYN 3.375GM+NS 50ML 50 ML IV SCH ×3 (03:56→21:49)
[2018-12-05] MEDS: METRONIDAZOLE 500MG/100ML BAG 100 ML IV SCH ×3 (04:44→21:49)
[2018-12-05] MEDS: LACTATED RINGERS 1000ML 1,000 ML IV SCH ×2 (05:01→19:52)
[2018-12-05 06:23] LABS: HEMATOCRIT 29.8 % (36-48)
[2018-12-05] MEDS: FENTANYL 2500MCG+NS 250ML 250 ML IV PRN ×3 (07:34→20:15)
[2018-12-05] MEDS: PANTOPRAZOLE 40 MG/VIAL IVP SCH ×2 (09:17→21:49)
[2018-12-05 12:43] LABS: HEMATOCRIT 27.6 % (36-48)
[2018-12-05] MEDS: MIDAZOLAM 100MG-0.9% NS 100ML 100 ML IV PRN (16:51)
[2018-12-05 19:32] LABS: HEMATOCRIT 26.7 % (36-48)
--- NOTE | 2018-12-05 19:36 | NUR ---
Nutrition Intervention: Nutrition screen based on LOS x 6 days. Pt. S/P Exp. Lap with excision of pelvic mass, sigmoidectomy/partial omentectomy. Pt. S/P Resp. failure requiring intubation on mech vent. Pt. NPO x 6 days. Pt. with OG tube to LIS. Pt. has Right CVC in place. Labs reviewed(Alb 1.8, BUN 34, Creat 2.0, GFR 27). LBM: 11/29/18, BS absent. SR-12, left nephrostomy. Recommendations: 1) Rec. TPN- Clinimix /15@50ml/hr. 2) Rec. 250ml 20% Intralipids on . 3) Request Lipid panel. 4) Continue to monitor pt's nutritional status. 5) Consult RD as nutrition concerns arise. Addendum: 12/05/18 at [address] Amended: Links added.
--- NOTE | 2018-12-05 20:00 | NUR ---
ASSESSMENT REMAINS ON VENT WITH ORDERED SETTINGS AND SEDATION. ASSESSMENT COMPLETED SEE FLOW SHEET. FAMILY MEMBER AT BEDSIDE AND ENCOURAGED TO CALL FOR WANTS OR NEEDS. Addendum: 12/05/18 at 2213 by CARIE LEWIS RN RN Amended: Links added.
[2018-12-06] VITALS (41 sets, daily range): BP systolic 102–190; BP diastolic 48–104
[2018-12-06] MEDS ORDERED: SODIUM CHLORIDE 0.9% 500ML 500 ML IV ONE (03:52)
[2018-12-06 04:12] LABS: HEMATOCRIT 27.5 % (36-48); MEAN CORPUSCULAR HEMOGLOBIN 29.8 pg (27.0-33.0); MEAN CORPUSCULAR HGB CONC 33.4 g/dL (32.0-36.0); PLATELET COUNT (AUTO) 156 K/uL (130-400); RED BLOOD CELL COUNT(AUTO) 3.09 MIL/uL (4.00-5.50); RED CELL DISTRIBUTION WIDTH 15.5 % (11.0-15.5); WHITE BLOOD COUNT (AUTO) 14.6 K/uL (4.8-10.8)
[2018-12-06 04:22] LABS: CREATININE 1.8 mg/dL (0.5-1.5); PHOSPHORUS 3.9 mg/dL (2.5-4.9); POTASSIUM 4.2 mmol/L (3.5-5.1)
[2018-12-06 04:27] LABS: BAND NEUTROPHILS % (MANUAL) 2 % (0-2); EOSINOPHILS % (MANUAL) 1 % (1-6); LYMPHOCYTES % (MANUAL) 8 % (22-44); MAN.DIFF COMMENT-IMPRESSION MANUAL DIFFERENTIAL; MONOCYTES % (MANUAL) 4 % (2-9); SEGMENTED NEUTROPHILS % 85 % (40-70)
[2018-12-06 05:01] LABS: ABG BASE EXCESS -3.5 mmol/L (-2.0-3.0); ABG HCO3 21.2 mmol/L (21.0-28.0); ABG OXYGEN SATURATION 98.5 % (95.0-99.0); ABG PCO2 38 mmHg (32-45)
[2018-12-06] MEDS: ZOSYN 3.375GM+NS 50ML 50 ML IV SCH ×3 (05:26→20:53)
[2018-12-06] MEDS: FENTANYL 2500MCG+NS 250ML 250 ML IV PRN (05:26)
[2018-12-06] MEDS: METRONIDAZOLE 500MG/100ML BAG 100 ML IV SCH ×3 (05:26→22:02)
--- NOTE | 2018-12-06 09:13 | NUR ---
CHART CHECK COMPLETED. Pt IS A 58 YEAR OLD FEMALE ADMITTED SECONDARY TO ABDOMINAL PAIN. Pt WITH PELVIC MASS AND SURGICAL REMOVAL THIS ADMISSION. Pt WITH DIC. Pt CURRENTLY ON MECHANICAL VENTILATION AND NG TUBE IN PLACE. Pt HAS A PAST MEDICAL HISTORY SIGNIFICANT FOR HYPERTENSION AND HYSTERECTOMY. RECOMMEND SKILLED SPEECH THERAPY EVALUATION 24 HOURS POST EXTUBATION. STILL CLEANER TUBE TO FOLLOW UP WITH Pt. Addendum: 12/06/18 at [address] Amended: Links added.
[2018-12-06] MEDS: PANTOPRAZOLE 40 MG/VIAL IVP SCH ×2 (09:29→20:53)
--- NOTE | 2018-12-06 09:30 | NUR ---
Emotional support SW visited with pt's son Pa at bedside. Son states he is pt's 4th son, she has 5 sons. Son reports brother from [place] has arrived and and they are waiting on brother to arrive from [facility]. Son states pt having surgery again today and is showing signs of improvement. SW provided emotional support. Sw to continue to f/u and assist as needed
--- NOTE | 2018-12-06 10:15 | NUR ---
PT WENT TO SURGERY AT THIS TIME Addendum: 12/06/18 at 1016 by RT RACHANA RT Amended: Links added.
[2018-12-06] MEDS: DEXTROSE 5%-WATER 1,000 ML IV SCH ×2 (12:20→20:53)
[2018-12-06] MEDS ORDERED: ROCURONIUM 10MG/1ML SYR 10 MG/ML ML ONE ×2 (16:03→17:15)
[2018-12-06] MEDS ORDERED: FENTANYL CITRATE PF 50 MCG/1 ML 2ML VIAL ONE ×2 (16:48→16:55)
[2018-12-06] MEDS ORDERED: BACITRACIN 50,000 UNIT VIAL ONE (16:49)
--- NOTE | 2018-12-06 17:06 | NUR ---
Patient went to surgery at 1630 from ICU room 209. Addendum: 12/06/18 at 1920 by ROBBIN SAUCEDO RN Patient arrived from OR at 182
[2018-12-06 17:37] LABS: ABG BASE EXCESS -2.7 mmol/L (-2.0-3.0); ABG HCO3 19.4 mmol/L (21.0-28.0); ABG PCO2 27 mmHg (32-45)
[2018-12-06] MEDS: MIDAZOLAM 100MG-0.9% NS 100ML 100 ML IV PRN (20:55)
[2018-12-06] MEDS: LACTATED RINGERS 1000ML 1,000 ML IV SCH (21:41)
[2018-12-07] VITALS (80 sets, daily range): BP systolic 98–176; BP diastolic 36–132
[2018-12-07] MEDS: FENTANYL 2500MCG+NS 250ML 250 ML IV PRN ×2 (04:04→18:20)
[2018-12-07] MEDS: DEXTROSE 5%-WATER 1,000 ML IV SCH ×2 (04:05→16:15)
[2018-12-07] MEDS: ZOSYN 3.375GM+NS 50ML 50 ML IV SCH ×3 (04:06→21:15)
[2018-12-07] MEDS: METRONIDAZOLE 500MG/100ML BAG 100 ML IV SCH ×3 (06:35→21:15)
--- NOTE | 2018-12-07 07:38 | NUR ---
Pt.remained hemodynamically stable,vented and sedated.Bedside report given to incoming NOD using SBAR all questions answered.
[2018-12-07] MEDS: PANTOPRAZOLE 40 MG/VIAL IVP SCH ×2 (09:01→21:15)
--- NOTE | 2018-12-07 16:30 | NUR ---
RD NOTIFICATION/ FOLLOW UP Pt currently intubated/ sedated. Diet: NPO; pending extubation/ on weaning trials. Pt NPO X 6days now. S/P re-section of large tumor from pelvic region. Colostomy in place, noted. RD recommends advance diet as tolerated post extubation when medically feasible to clear liquids. RD will continue to monitor and follow up as needed. Paty Adan MS, RDN Addendum: 12/07/18 at [address] Amended: Links added.
[2018-12-07] MEDS: MIDAZOLAM 100MG-0.9% NS 100ML 100 ML IV PRN (18:21)
[2018-12-08] VITALS (65 sets, daily range): BP systolic 99–162; BP diastolic 59–117
[2018-12-08 04:01] LABS: HEMATOCRIT 22.4 % (36-48); MEAN CORPUSCULAR HEMOGLOBIN 29.3 pg (27.0-33.0); MEAN CORPUSCULAR HGB CONC 33.2 g/dL (32.0-36.0); MEAN CORPUSCULAR VOLUME 88.1 fL (79-99); PLATELET COUNT (AUTO) 174 K/uL (130-400); RED BLOOD CELL COUNT(AUTO) 2.54 MIL/uL (4.00-5.50); RED CELL DISTRIBUTION WIDTH 15.6 % (11.0-15.5); WHITE BLOOD COUNT (AUTO) 13.9 K/uL (4.8-10.8)
[2018-12-08 04:16] LABS: ALBUMIN 1.1 g/dL (3.5-5.0); BILIRUBIN,TOTAL 0.8 mg/dL (0.2-1.0); CREATININE 1.2 mg/dL (0.5-1.5); MAGNESIUM 1.9 mg/dL (1.80-2.40); PHOSPHORUS 1.9 mg/dL (2.5-4.9); POTASSIUM 3.6 mmol/L (3.5-5.1); TOTAL PROTEIN, SERUM 4.8 g/dL (6.0-8.3)
[2018-12-08 04:18] LABS: BAND NEUTROPHILS % (MANUAL) 2 % (0-2); LYMPHOCYTES % (MANUAL) 10 % (22-44); MAN.DIFF COMMENT-IMPRESSION MANUAL DIFFERENTIAL; MONOCYTES % (MANUAL) 6 % (2-9); PLATELET MORPHOLOGY COMMENT ADEQUATE; SEGMENTED NEUTROPHILS % 82 % (40-70)
[2018-12-08] MEDS: ZOSYN 3.375GM+NS 50ML 50 ML IV SCH ×3 (05:38→20:52)
[2018-12-08] MEDS: METRONIDAZOLE 500MG/100ML BAG 100 ML IV SCH ×3 (05:38→21:00)
[2018-12-08] MEDS ORDERED: SODIUM CHLORIDE 0.9% 500ML 500 ML IV ONE (05:54)
[2018-12-08] MEDS: MAGNESIUM 2GM PREMIX 50ML 50 ML IV PRN (07:58)
[2018-12-08] MEDS: POTASSIUM CHLORIDE 20MEQ/100ML 100 ML IV PRN ×2 (07:59→11:59)
[2018-12-08] MEDS: PANTOPRAZOLE 40 MG/VIAL IVP SCH ×2 (08:05→20:57)
[2018-12-08] MEDS: MIDAZOLAM 100MG-0.9% NS 100ML 100 ML IV PRN (08:19)
[2018-12-08] MEDS: DEXTROSE 5%-WATER 1,000 ML IV SCH (09:06)
--- NOTE | 2018-12-08 10:00 | NUR ---
DR AVILA AT BEDSIDE, MD INSTRUCTED TO CHANGE DRESSING TO ABDOMINAL AREA AT THIS TIME. CLEANED INCISION WITH NORMAL SALINE, PAT DRIED, COVERED WITH ABD PADS, AND SECURED WITH HYPAFIX
[2018-12-08] MEDS: FENTANYL 2500MCG+NS 250ML 250 ML IV PRN (10:01)
[2018-12-08 11:24] LABS: MAGNESIUM 2.3 mg/dL (1.80-2.40); POTASSIUM 3.8 mmol/L (3.5-5.1)
--- NOTE | 2018-12-08 14:45 | NUR ---
SCHUSTER CATH NOTED TO BE LEAKING, PER DR GARAY, DISCONTINUED CURRENT SCHUSTER CATHETER INTACT. REINSERTED 18 FR SCHUSTER CATHETER, UNDER STERILE TECHNIQUE, NOTED SCANT AMOUNT PALE YELLOW URINE WITH CLOUDY SEDIMENTS.
[2018-12-08] MEDS ORDERED: FUROSEMIDE 10 MG/ML 4ML VIAL IV SCH (17:00)
[2018-12-08] MEDS ORDERED: FENTANYL CITRATE PF 50 MCG/1 ML 2ML VIAL IVP PRN (18:15)
[2018-12-08] MEDS: PROPOFOL 1000 MG/100 ML IV PRN (23:39)
[2018-12-09] VITALS (44 sets, daily range): BP systolic 114–177; BP diastolic 52–99
[2018-12-09] MEDS: DEXTROSE 5%-WATER 1,000 ML IV SCH (02:07)
[2018-12-09 03:57] LABS: BASOPHILS % (AUTO) 0.3 % (0.0-5.0); EOSINOPHILS % (AUTO) 2.3 % (0.0-8.0); LYMPHOCYTES % (AUTO) 11.5 % (21.0-51.0); MEAN CORPUSCULAR HEMOGLOBIN 28.8 pg (27.0-33.0); MEAN CORPUSCULAR HGB CONC 32.6 g/dL (32.0-36.0); MEAN CORPUSCULAR VOLUME 88.2 fL (79-99); MONOCYTES % (AUTO) 7.8 % (3.0-13.0); NEUTROPHILS % (AUTO) 78.1 % (40.0-77.0); NUCLEATED RED BLOOD CELLS 0.1 % (0.0-0.19); PLATELET COUNT (AUTO) 171 K/uL (130-400); WHITE BLOOD COUNT (AUTO) 11.9 K/uL (4.8-10.8)
[2018-12-09 04:04] LABS: CREATININE 0.9 mg/dL (0.5-1.5); POTASSIUM 3.5 mmol/L (3.5-5.1)
[2018-12-09] MEDS: ZOSYN 3.375GM+NS 50ML 50 ML IV SCH ×3 (05:56→20:01)
[2018-12-09] MEDS: METRONIDAZOLE 500MG/100ML BAG 100 ML IV SCH ×3 (05:56→21:42)
[2018-12-09] MEDS: PROPOFOL 1000 MG/100 ML IV PRN ×3 (05:58→20:00)
[2018-12-09 08:13] LABS: ABG BASE EXCESS -2.5 mmol/L (-2.0-3.0); ABG HCO3 20.8 mmol/L (21.0-28.0); ABG PCO2 32 mmHg (32-45)
[2018-12-09] MEDS: PANTOPRAZOLE 40 MG/VIAL IVP SCH ×2 (09:18→20:01)
[2018-12-09] MEDS: POTASSIUM CHLORIDE 20MEQ/100ML 100 ML IV PRN ×4 (09:18→20:01)
[2018-12-09 10:47] LABS: INR 1.03 (0.85-1.15); PROTHROMBIN TIME 10.8 SEC (9.6-11.6)
--- NOTE | 2018-12-09 13:00 | NUR ---
ELEVATED BP DR GARAY NOTIFIED OF PATIENT'S ELEVATED BP; ORDERS TO RESEDATE FOR TODAY
[2018-12-09] MEDS ORDERED: FUROSEMIDE 10 MG/ML 4ML VIAL IV SCH (14:45)
--- NOTE | 2018-12-09 15:40 | NUR ---
DR AUSTIN AVILA NOTIFIED OF PEG SITE LARGE AMOUNT OF SEROSANGUINEOUS FLUID LEAKING; ORDERS GIVEN AND PLACED IN [facility]
[2018-12-09] MEDS ORDERED: SODIUM CHLORIDE 0.9% 500ML 500 ML IV ONE (21:43)
[2018-12-09] MEDS: FUROSEMIDE 10 MG/ML 2ML VIAL IV SCH (21:45)
[2018-12-10] VITALS (25 sets, daily range): BP systolic 104–170; BP diastolic 56–86
[2018-12-10] MEDS: PROPOFOL 1000 MG/100 ML IV PRN (00:37)
[2018-12-10] MEDS: POTASSIUM CHLORIDE 20MEQ/100ML 100 ML IV PRN (00:38)
[2018-12-10 04:13] LABS: HEMATOCRIT 21.4 % (36-48); MEAN CORPUSCULAR HGB CONC 34.5 g/dL (32.0-36.0); PLATELET COUNT (AUTO) 170 K/uL (130-400); RED BLOOD CELL COUNT(AUTO) 2.46 MIL/uL (4.00-5.50); RED CELL DISTRIBUTION WIDTH 14.7 % (11.0-15.5); WHITE BLOOD COUNT (AUTO) 10.9 K/uL (4.8-10.8)
[2018-12-10] MEDS: FUROSEMIDE 10 MG/ML 2ML VIAL IV SCH ×2 (04:18→12:20)
[2018-12-10] MEDS: ZOSYN 3.375GM+NS 50ML 50 ML IV SCH ×3 (04:18→20:41)
[2018-12-10 04:28] LABS: CREATININE 0.9 mg/dL (0.5-1.5); MAGNESIUM 1.7 mg/dL (1.80-2.40); PHOSPHORUS 2.4 mg/dL (2.5-4.9); POTASSIUM 4.2 mmol/L (3.5-5.1)
[2018-12-10] MEDS: METRONIDAZOLE 500MG/100ML BAG 100 ML IV SCH ×3 (04:58→21:35)
[2018-12-10] MEDS: MAGNESIUM 2GM PREMIX 50ML 50 ML IV PRN (05:51)
[2018-12-10] MEDS: PANTOPRAZOLE 40 MG/VIAL IVP SCH ×2 (09:20→20:41)
[2018-12-10 11:10] LABS: ABG BASE EXCESS 0.3 mmol/L (-2.0-3.0); ABG HCO3 23.4 mmol/L (21.0-28.0); ABG OXYGEN SATURATION 98.5 % (95.0-99.0); ABG PCO2 33 mmHg (32-45)
--- NOTE | 2018-12-10 11:50 | NUR ---
PATIENT EXTUBATED AT 1150 AND PLACED ON 40% CAM; VS STABLE; PATIENT RESTING COMFORTABLY IN BED; WILL CONTINUE TO MONITOR
--- NOTE | 2018-12-10 15:05 | NUR ---
RD FOLLOW UP Pt s/p Extubation today. Pt to initiate ice chips and continue to advance diet as tolerated as per RN. RD recommend to advance diet as tolerated to GI Soft/Izard, when medically feasible. Pt monitored labs: Hgb 7.4, Hct 21.4, Na 146, Glu 112, Ca 7.8, P 2.4, Mg 1.70, Alb 1.1. RD to continue to monitor. Please notify RD as nutritional concerns arise. Thank you. Addendum: 12/10/18 at [address] Amended: Links added.
[2018-12-10] MEDS ORDERED: HYDRALAZINE HCL 20 MG/ML VIAL IV PRN (17:30)
[2018-12-10] MEDS ORDERED: MORPHINE SULFATE 2 MG/ML 1ML SYG ONE (17:31)
[2018-12-10] MEDS: MORPHINE SULFATE 2 MG/ML 1ML SYG IVP PRN (19:30)
[2018-12-11] VITALS (13 sets, daily range): BP systolic 139–170; BP diastolic 57–85
[2018-12-11] MEDS: MORPHINE SULFATE 2 MG/ML 1ML SYG IVP PRN ×4 (01:40→21:46)
[2018-12-11 03:28] LABS: HEMATOCRIT 22.3 % (36-48); MEAN CORPUSCULAR HEMOGLOBIN 29.9 pg (27.0-33.0); MEAN CORPUSCULAR HGB CONC 34.2 g/dL (32.0-36.0); MEAN CORPUSCULAR VOLUME 87.6 fL (79-99); PLATELET COUNT (AUTO) 201 K/uL (130-400); RED BLOOD CELL COUNT(AUTO) 2.54 MIL/uL (4.00-5.50); RED CELL DISTRIBUTION WIDTH 14.9 % (11.0-15.5); WHITE BLOOD COUNT (AUTO) 12.4 K/uL (4.8-10.8)
[2018-12-11 03:41] LABS: CREATININE 0.9 mg/dL (0.5-1.5); PHOSPHORUS 2.8 mg/dL (2.5-4.9); POTASSIUM 3.4 mmol/L (3.5-5.1)
[2018-12-11] MEDS: POTASSIUM CHLORIDE 20MEQ/100ML 100 ML IV PRN (04:03)
[2018-12-11] MEDS: ZOSYN 3.375GM+NS 50ML 50 ML IV SCH ×3 (04:03→20:35)
[2018-12-11] MEDS: METRONIDAZOLE 500MG/100ML BAG 100 ML IV SCH ×2 (05:15→12:58)
--- NOTE | 2018-12-11 08:00 | NUR ---
PATIENT RECEIVED IN BEDSIDE CHAIR, AAOX3, NO ACUTE DISTRESS NOTED. PATIENT WITH A FLAT AFFECT, FOLLOWS COMMANDS WELL AND IS COOPERATIVE WITH POC. ABD DRESSING DRY AND INTACT. G-TUBE CLAMPED, NEPHROSTOMY TUBE TO LEFT LATERAL SECURED TO PATIENT, COLOSTOMY WITH PINK STOMA AND LIQUID STOOL NOTED. MINDY DRAIN NOTED WITH SEROSANGUINEOUS OUTPUT, ALSO SECURED TO PATIENT. TELE WITH SR TO . POC DISCUSSED WITH PATIENT. WILL CONT TO MONITOR CLOSELY. Addendum: 12/11/18 at 1100 by AGUSTIN HORNE RN RN Amended: Links added.
[2018-12-11] MEDS: LISINOPRIL 40 MG TABLET PO SCH (08:32)
[2018-12-11] MEDS: DILTIAZEM HCL 420 MG PO SCH (08:50)
[2018-12-11] MEDS: PANTOPRAZOLE 40 MG/VIAL IVP SCH ×2 (09:53→20:35)
--- NOTE | 2018-12-11 13:38 | NUR ---
MD ROUNDS DR. GARAY IN TO SEE PATIENT. PATIENT OKAY TO TRANSFER TO PCCU. INFORMED MD PATHOLOGY PENDING. UPDATED ON PHYSICAL THERAPY, PATIENT REMAINS VERY WEAK. NEW ORDER FOR CASE MANAGEMENT EVALUATION FOR DISCHARGE PLANNING FOR SNF.
--- NOTE | 2018-12-11 19:00 | NUR ---
ASSESSMENT ASSUMED CARE. AA&OX3. IN BED. NO DISTRESS NOTED. UNLABORED RESPIRATIONS WITH O2 3LNC. ENCOURAGED COUGH & DEEP BREATHING. GENERALIZED WEAKNESS NOTED. FALL PRECAUTIONS: BED RAILS UP, ROOM ACROSS FROM NURSES' STATION, ENCOURAGED TO USE CALL LIGHT. SPECIALTY BED ON ROTATION CYCLE. ABD DRESSINGS MODERATELY SOAKED WITH SEROUS DRAINAGE. CHANGED DRESSING USING ASEPTIC TECHNIQUE. MID ABD INCISION WITH EDGES WELL APPROXIMATED, [place] IN PLACE. PEG TUBE INSERTION SITE OOZING SMALL AMOUT OF SEROUS SANGUINOUS DRAINAGE. TOLERATED DRESSING CHANGES. SINUS RHYTHM HR 70'S. FULL ASSESSMENT DOCUMENTED. Addendum: 12/11/18 at 2123 by KING MERA RN RN Amended: Links added.
[2018-12-12] VITALS: BP 159/51
[2018-12-12 03:55] LABS: BASOPHILS % (AUTO) 0.1 % (0.0-5.0); EOSINOPHILS % (AUTO) 0.1 % (0.0-8.0); HEMATOCRIT 23.1 % (36-48); LYMPHOCYTES % (AUTO) 6.1 % (21.0-51.0); MEAN CORPUSCULAR HEMOGLOBIN 28.5 pg (27.0-33.0); MEAN CORPUSCULAR HGB CONC 33.1 g/dL (32.0-36.0); MEAN CORPUSCULAR VOLUME 86.1 fL (79-99); MONOCYTES % (AUTO) 5.9 % (3.0-13.0); NEUTROPHILS % (AUTO) 87.8 % (40.0-77.0); PLATELET COUNT (AUTO) 230 K/uL (130-400); RED BLOOD CELL COUNT(AUTO) 2.68 MIL/uL (4.00-5.50); RED CELL DISTRIBUTION WIDTH 14.8 % (11.0-15.5); WHITE BLOOD COUNT (AUTO) 13.5 K/uL (4.8-10.8)
[2018-12-12 04:03] LABS: CREATININE 0.7 mg/dL (0.5-1.5); MAGNESIUM 1.7 mg/dL (1.80-2.40)
[2018-12-12] MEDS: ZOSYN 3.375GM+NS 50ML 50 ML IV SCH ×3 (04:14→20:31)
[2018-12-12] MEDS: MAGNESIUM 2GM PREMIX 50ML 50 ML IV PRN (04:16)
[2018-12-12] MEDS: POTASSIUM CHLORIDE 20MEQ/100ML 100 ML IV PRN ×4 (04:16→11:20)
[2018-12-12 07:19] VITALS: BP_SYST 117; BP_SYST 147; BP_DIAS 62; BP_DIAS 72
--- NOTE | 2018-12-12 08:00 | NUR ---
PT RECEIVED IN BED, AAOX3, IN A BETTER MOOD TODAY. PT IS MORE VERBAL AND COOPERATIVE WITH POC. MD ROUNDS DR. REYES IN TO SEE PATIENT. MD SPOKE WITH PATIENT. UPDATED HIM ON POC AND PENDING PCCU ROOM.
[2018-12-12] MEDS: PANTOPRAZOLE 40 MG/VIAL IVP SCH ×2 (08:53→20:31)
[2018-12-12] MEDS: LISINOPRIL 40 MG TABLET PO SCH (08:58)
[2018-12-12] MEDS: DILTIAZEM HCL 420 MG PO SCH (09:00)
[2018-12-12 09:13] LABS: MAGNESIUM 2.5 mg/dL (1.80-2.40); POTASSIUM 3.3 mmol/L (3.5-5.1)
--- NOTE | 2018-12-12 11:08 | NUR ---
DC PLAN PLAN IS FOR PATIENT TO DC HOME. JUST TO MAKE SURE SINCE I GOT A TRIGGER FOR SNF. SENT TO ALL THE FACILITIES TO SEE IF THEY ACCEPT MEDICAID [facility] I KNOW IT ONLY COVERS SOME BASIC MEDICAL CARE. Addendum: 12/12/18 at 1110 by MONICA ANTHONY RN CM Amended: Links added.
--- NOTE | 2018-12-12 15:20 | NUR ---
FOLLOW UP PATHOLOGY RESULTS STILL PENDING
[2018-12-12 19:00] VITALS: BP 137/57
--- NOTE | 2018-12-12 19:01 | NUR ---
MD ROUNDS DR GUADALUPE AT THE BEDSIDE. SPOKE WITH PATIENT ON PENDING PATHOLOGY RESULTS AND POSSIBILITY OF REQUIRING CHEMO AND/OR RADIATION AND WOULD DISCUSS FURTHER ONCE PATHOLOGY RESULT COMES IN.
[2018-12-12] MEDS: MORPHINE SULFATE 2 MG/ML 1ML SYG IVP PRN (21:21)
[2018-12-13] VITALS (8 sets, daily range): BP systolic 140–165; BP diastolic 57–76
[2018-12-13] MEDS: ZOSYN 3.375GM+NS 50ML 50 ML IV SCH ×3 (04:24→21:23)
[2018-12-13 04:50] LABS: HEMATOCRIT 23.3 % (36-48); MEAN CORPUSCULAR HEMOGLOBIN 29.5 pg (27.0-33.0); MEAN CORPUSCULAR HGB CONC 33.9 g/dL (32.0-36.0); PLATELET COUNT (AUTO) 234 K/uL (130-400); RED BLOOD CELL COUNT(AUTO) 2.68 MIL/uL (4.00-5.50); RED CELL DISTRIBUTION WIDTH 14.6 % (11.0-15.5); WHITE BLOOD COUNT (AUTO) 11.3 K/uL (4.8-10.8)
[2018-12-13 05:03] LABS: CREATININE 0.7 mg/dL (0.5-1.5); MAGNESIUM 2.1 mg/dL (1.80-2.40); POTASSIUM 3.3 mmol/L (3.5-5.1)
[2018-12-13] MEDS: POTASSIUM CHLORIDE 20MEQ/100ML 100 ML IV PRN (06:21)
--- NOTE | 2018-12-13 08:15 | NUR ---
PT WAS REQUESTING TO GET UP TO CHAIR AND PT WAS TRANSFERRED TO CHAIR BY TWO NURSING STAFF. PT WAS VERY WEAK BUT INSISTED TO GET UP TO CHAIR AND ONLY TOLERATED 1 HOUR. PT WAS ENCOURAGED TO TAKE SOMETHING FOR PAIN BUT WANTED TO WAIT A BIT.
[2018-12-13] MEDS: PANTOPRAZOLE SODIUM 40 MG TABLET.DR PO SCH ×2 (08:16→16:38)
[2018-12-13] MEDS: LISINOPRIL 40 MG TABLET PO SCH (08:17)
[2018-12-13] MEDS: DILTIAZEM HCL 420 MG PO SCH ×2 (08:19→13:15)
[2018-12-13] MEDS: MORPHINE SULFATE 2 MG/ML 1ML SYG IVP PRN ×2 (10:06→13:03)
--- NOTE | 2018-12-13 14:29 | NUR ---
RD NOTIFICATION/ FOLLOW UP Diet: Full liquids. Pt stated she is hungry and would like some fruit "at least". Pt was NPO for several days post admission and now advancing diet slowly. Pt stated she is still having abdominal pain, off and on. Pt said she does not have any strength due to not being able to eat food. RD offered pt oral supplement, however pt refused. Recommendations: Advance diet as tolerated when medically feasible COMMUNITY LIVING SPECIALIST eval for possible diet modifications/ recommendations RD will monitor and follow up as needed, thank you. Addendum: 12/13/18 [address] Amended: Links added.
--- NOTE | 2018-12-13 19:40 | NUR ---
STATUS PATIENT URINATED, SCHUSTER KINKED. BATHED AND ALLEVYN PAD CHANGED NOTED SIZEABLE STAGE 2 ULCER TO BUTTOCKS/COCCYX AREA. REPLACED WITH NEW ALLEVYN. FLOOR CAMERA UNAVAILABLE. UNABLE TO LOCATE RAMP SUPERVISOR. BED ROTATION ON. PATIENT WISHES TO REMAIN ON BACK. EXPLAINED TO PATIENT ABOUT PRESSURE ULCER AND PATIENT STATED THAT SHE DID NOT CARE AND WANTED TO REMAIN ON BACK.
[2018-12-13] MEDS: ACETAMINOPHEN 325 MG TAB PO PRN (21:48)
[2018-12-14] VITALS: BP 169/79
[2018-12-14] MEDS: MORPHINE SULFATE 2 MG/ML 1ML SYG IVP PRN ×4 (02:33→21:10)
[2018-12-14 03:59] LABS: HEMATOCRIT 23.9 % (36-48); MEAN CORPUSCULAR HEMOGLOBIN 30.2 pg (27.0-33.0); MEAN CORPUSCULAR HGB CONC 34.6 g/dL (32.0-36.0); MEAN CORPUSCULAR VOLUME 87.3 fL (79-99); PLATELET COUNT (AUTO) 286 K/uL (130-400); RED BLOOD CELL COUNT(AUTO) 2.74 MIL/uL (4.00-5.50); RED CELL DISTRIBUTION WIDTH 14.5 % (11.0-15.5); WHITE BLOOD COUNT (AUTO) 13.6 K/uL (4.8-10.8)
[2018-12-14 04:00] VITALS: BP 149/71
[2018-12-14 04:15] LABS: CREATININE 0.7 mg/dL (0.5-1.5); POTASSIUM 3.4 mmol/L (3.5-5.1)
[2018-12-14] MEDS: ZOSYN 3.375GM+NS 50ML 50 ML IV SCH ×2 (04:53→21:10)
[2018-12-14] MEDS: POTASSIUM CHLORIDE 20MEQ/100ML 100 ML IV PRN ×2 (04:58→06:33)
[2018-12-14] MEDS: PANTOPRAZOLE SODIUM 40 MG TABLET.DR PO SCH ×2 (06:30→08:19)
[2018-12-14 07:16] VITALS: BP 156/69
[2018-12-14] MEDS: LISINOPRIL 40 MG TABLET PO SCH (08:19)
[2018-12-14 12:00] VITALS: BP 118/57
[2018-12-14 16:09] VITALS: BP 139/87
--- NOTE | 2018-12-14 17:50 | NUR ---
DR. GUADALUPE HERE AND SPOKE WITH PATIENT AND ADVISED PT OF PATHOLOGY RESULTS AND TREATMENT.
--- NOTE | 2018-12-14 18:00 | NUR ---
REPORT GIVEN TO SHERMAN FROM 3RD FLOOR AND PT WAS TRANSFERRED TO ROOM 309 VIA OWN BED.
[2018-12-14 20:00] VITALS: BP 145/76
[2018-12-15] VITALS: BP 157/82
[2018-12-15 04:00] VITALS: BP 150/79
[2018-12-15 05:19] LABS: HEMATOCRIT 26.2 % (36-48); MEAN CORPUSCULAR HEMOGLOBIN 29.3 pg (27.0-33.0); MEAN CORPUSCULAR HGB CONC 33.4 g/dL (32.0-36.0); MEAN CORPUSCULAR VOLUME 87.9 fL (79-99); NUCLEATED RED BLOOD CELLS 0.1 % (0.0-0.19); PLATELET COUNT (AUTO) 313 K/uL (130-400); RED BLOOD CELL COUNT(AUTO) 2.98 MIL/uL (4.00-5.50); RED CELL DISTRIBUTION WIDTH 14.7 % (11.0-15.5); WHITE BLOOD COUNT (AUTO) 12.2 K/uL (4.8-10.8)
[2018-12-15 05:33] LABS: CREATININE 0.8 mg/dL (0.5-1.5); POTASSIUM 4.4 mmol/L (3.5-5.1)
[2018-12-15] MEDS: ZOSYN 3.375GM+NS 50ML 50 ML IV SCH ×3 (05:56→21:55)
[2018-12-15 08:00] VITALS: BP 151/65
[2018-12-15] MEDS: DILTIAZEM HCL 420 MG PO SCH (09:00)
[2018-12-15] MEDS: LISINOPRIL 40 MG TABLET PO SCH (10:37)
[2018-12-15] MEDS: MORPHINE SULFATE 2 MG/ML 1ML SYG IVP PRN ×2 (10:38→18:58)
[2018-12-15 12:00] VITALS: BP 152/76
--- NOTE | 2018-12-15 13:42 | NUR ---
RD FOLLOW UP Diet: Regular/ Mechanical soft/ 2gmNa. PO intake 50% and has good appetite as per pt. Pt stated she is tolerating meals and eating good. LBM: 12/14, noted. Recommendations: Continue current diet Offer Ensure BID RD will continue to follow up Addendum: 12/15/[address] Amended: Links added.
[2018-12-15 16:00] VITALS: BP 161/82
--- NOTE | 2018-12-15 16:09 | NUR ---
SCHUSTER CATH. REMOVED PER ORDER, EMPTIED 500ML YELLOW URINE.
[2018-12-15] MEDS: PANTOPRAZOLE SODIUM 40 MG TABLET.DR PO SCH ×2 (16:15→21:55)
--- NOTE | 2018-12-15 17:30 | NUR ---
DR. ZIMMERMAN- DOCUMENTATION DISCUSSED DISCUSSED PT'S BENEFITS-- AND DOCUMENTATION WITH DR. GUADALUPE AT BEDSIDE, ADVISED HIM THAT IF HE BELIEVES HER TREATMENT IS URGENT THEN IT IS IMPERATIVE THAT PROGNOSIS GOES INTO A PROGRESS NOTE SO THAT IT CAN BE SENT TO [employer] ARCHITECT TO EXPEDITE HER BENEFITS ACTIVATION DR. GUADALUPE STATES YES, HER TREATMENT IS URGENT AND HE WILL WRITE THAT. CM PLAN TO SEND TO [facility] ON TUESDAY. PT AND SPOUSE VERBALIZED UNDERSTANDING OF THE PLAN
--- NOTE | 2018-12-15 19:19 | NUR ---
TRAVONISTER ELAINE FORMS STARTED, ORDER REC FROM , PENDING CHANGE OF OSTOMY, [id number] ONE PIECE BEING USED RIGHT NOW, NEED THE SIZE /DIAMATER IN MM'S THAT THE RN MAKES FLANGE, IN ORDER TO ORDER THE CORRECT ELAINE TWO PIECE OSTOMY BAGS. WILL GET THE INFO FROM THE RN AT NEXT DRESSING CHANGE AND SEND FORMS ON TUESDAY
[2018-12-15 20:00] VITALS: BP 153/72
[2018-12-16] VITALS: BP 120/65
[2018-12-16] MEDS: MORPHINE SULFATE 2 MG/ML 1ML SYG IVP PRN (02:52)
[2018-12-16 04:00] VITALS: BP 143/73
[2018-12-16] MEDS: PANTOPRAZOLE SODIUM 40 MG TABLET.DR PO SCH ×3 (04:48→16:20)
[2018-12-16] MEDS: ZOSYN 3.375GM+NS 50ML 50 ML IV SCH ×3 (04:48→21:00)
[2018-12-16 08:00] VITALS: BP 145/65
[2018-12-16] MEDS: DILTIAZEM HCL 420 MG PO SCH (09:00)
[2018-12-16] MEDS: LISINOPRIL 40 MG TABLET PO SCH (10:13)
[2018-12-16 12:00] VITALS: BP 148/77
[2018-12-16] MEDS: ACETAMINOPHEN 325 MG TAB PO PRN (14:35)
[2018-12-16 16:00] VITALS: BP 135/64
[2018-12-16 20:00] VITALS: BP 129/53
[2018-12-17] VITALS: BP 140/60
[2018-12-17] MEDS: ACETAMINOPHEN 325 MG TAB PO PRN ×2 (00:09→13:15)
[2018-12-17 04:00] VITALS: BP 146/72
[2018-12-17] MEDS: ZOSYN 3.375GM+NS 50ML 50 ML IV SCH ×3 (04:31→21:36)
[2018-12-17 08:00] VITALS: BP 117/60
[2018-12-17] MEDS: LISINOPRIL 40 MG TABLET PO SCH (09:40)
[2018-12-17] MEDS: DILTIAZEM HCL 420 MG PO SCH (09:42)
[2018-12-17 12:00] VITALS: BP 138/75
[2018-12-17 16:00] VITALS: BP 136/74
[2018-12-17] MEDS: PANTOPRAZOLE SODIUM 40 MG TABLET.DR PO SCH (16:07)
[2018-12-17] MEDS: MORPHINE SULFATE 2 MG/ML 1ML SYG IVP PRN (16:19)
[2018-12-17 19:11] VITALS: BP 144/72
[2018-12-18] VITALS (7 sets, daily range): BP systolic 112–148; BP diastolic 60–78
[2018-12-18] MEDS: ZOSYN 3.375GM+NS 50ML 50 ML IV SCH ×3 (04:24→20:44)
[2018-12-18] MEDS: ACETAMINOPHEN 325 MG TAB PO PRN ×2 (05:23→20:45)
[2018-12-18] MEDS: PANTOPRAZOLE SODIUM 40 MG TABLET.DR PO SCH ×2 (06:19→15:23)
[2018-12-18] MEDS: DILTIAZEM HCL 420 MG PO SCH (08:25)
[2018-12-18] MEDS: LISINOPRIL 40 MG TABLET PO SCH (08:25)
--- NOTE | 2018-12-18 15:00 | NUR ---
[facility] CONSULT PATIENT ASSESSED REQUESTED: PATIENT PRESENTS WITH UNSTAGEABLE PRESSURE ULCER TO COCCYX; WOUND SITE MEASURED AND [facility] RECOMMENDATIONS SUBMITTED. Addendum: 12/19/18 at 0913 by MIKEY KIRK LVN LVN W Amended: Links added.
[2018-12-18] MEDS: HONEY 1 APPL/ML TUBE TP SCH (20:43)
[2018-12-19] VITALS (10 sets, daily range): BP systolic 113–148; BP diastolic 51–90
[2018-12-19] MEDS: ACETAMINOPHEN 325 MG TAB PO PRN ×2 (02:55→21:46)
[2018-12-19] MEDS: ZOSYN 3.375GM+NS 50ML 50 ML IV SCH ×3 (05:08→21:46)
--- NOTE | 2018-12-19 05:45 | NUR ---
MINDY drain removed as order: Obtained 15 ml output of serousanguineous fluid. [place] removed intact and no sign of breakage. Pt. tolerated it well. No drainage seen on the site. Site covered with gauze. Remain clean,dry and intact.
[2018-12-19] MEDS: PANTOPRAZOLE SODIUM 40 MG TABLET.DR PO SCH ×2 (06:21→17:37)
[2018-12-19] MEDS: DILTIAZEM HCL 420 MG PO SCH (09:00)
[2018-12-19] MEDS: HONEY 1 APPL/ML TUBE TP SCH (09:00)
--- NOTE | 2018-12-19 09:50 | NUR ---
WOUND CARE STAFF HERE FOR ASSESSMENT TO HER COCCYX SITE, WITH CARE PENG.
--- NOTE | 2018-12-19 10:50 | NUR ---
P.T. HERE AND UP TO CHAIR, WITH CALL LIGHT IN REACH
[2018-12-19] MEDS: LISINOPRIL 40 MG TABLET PO SCH (11:10)
[2018-12-19] MEDS ORDERED: IOHEXOL-350 50ML VIAL IV ONE (14:30)
--- NOTE | 2018-12-19 15:30 | NUR ---
PT BACK FROM [facility]. . [place] , TOLERATE PROCEDURE WELL ASSESS LTSIDE OF CHEST. WITH NEPROTOMY TUBE. PER REPORT A CLEAN BAG WAS CHANGED, PATENCY NOTED , AND V/S POSTOP STARTED . CALL LIGHT IN REACH.
--- NOTE | 2018-12-19 19:36 | NUR ---
DR. MIJARES WAS CALLED AND UPDATE OF . OF THE NEPROSTOGRAM RESULTS . WITH OBSTRUCTION . PER REPORT . NO CHANGES .
[2018-12-20 00:03] VITALS: BP 139/67
[2018-12-20 04:03] VITALS: BP 114/58
[2018-12-20] MEDS: ZOSYN 3.375GM+NS 50ML 50 ML IV SCH ×3 (05:18→21:33)
[2018-12-20] MEDS: PANTOPRAZOLE SODIUM 40 MG TABLET.DR PO SCH ×2 (06:51→15:20)
[2018-12-20 08:00] VITALS: BP 145/75
[2018-12-20] MEDS: DILTIAZEM HCL 420 MG PO SCH (09:00)
--- NOTE | 2018-12-20 09:00 | NUR ---
[facility] INFO SENT PT WILL BE REC'ING SUPPLIES
--- NOTE | 2018-12-20 11:00 | NUR ---
P.T. HERE AND UP AMBULATED UP IN THE HALLWAY. TOLERATE WELL.
[2018-12-20 11:46] VITALS: BP 155/74
--- NOTE | 2018-12-20 13:53 | NUR ---
RD FOLLOW UP NOTE Pt tolerating Current Diet order with no report of GI distress, Good PO intake (100%). Pt with Coccyx wound;Recommend to add Pradeep BID. Recommend to add 500mg Vitamin C/220mg ZnSO4 for wound healing support. Pt LBM 12/19. Pt monitored labs: BG 130, Ca 8.4. RD to continue to monitor. Please notify RD as additional nutrition concerns arise. Thank you. Addendum: 12/20/18 at [address] Amended: Links added.
[2018-12-20] MEDS: LISINOPRIL 40 MG TABLET PO SCH (15:21)
[2018-12-20] MEDS: HONEY 1 APPL/ML TUBE TP SCH (15:22)
[2018-12-20 16:00] VITALS: BP 139/71
[2018-12-20 20:00] VITALS: BP 122/56
[2018-12-20] MEDS: ACETAMINOPHEN 325 MG TAB PO PRN (21:34)
[2018-12-21] VITALS: BP 114/54
[2018-12-21 04:00] VITALS: BP 115/59
[2018-12-21] MEDS: PANTOPRAZOLE SODIUM 40 MG TABLET.DR PO SCH ×2 (05:12→15:10)
[2018-12-21] MEDS: ZOSYN 3.375GM+NS 50ML 50 ML IV SCH ×3 (05:12→20:37)
[2018-12-21 08:00] VITALS: BP 144/69
[2018-12-21] MEDS: DILTIAZEM HCL 420 MG PO SCH (09:00)
--- NOTE | 2018-12-21 10:00 | NUR ---
DR. HELTON HERE AND ASSESS HER . COCCYX , AREA REGARDING POSSIBLE DEBRIETMENT. PER DR. HELTON NONE NEEDED AT THIS POINT, AND GET DISCHARGE HOME, WITH FOLLOWUP APPT IN 2 WEEKS OR SOONER OR SOONER FOR ANY CONCERNS. ASSESSMENT TO HERABD INCISION . STPALES MID MIDLINE . IN PLACE , WITH . NO DRAINAGE NOTED . IN PLACE GTTUBE CLAMP AND HAS HER NEPROTOMY T UBE, IN PLACE WITH URINEOUTPUT NOTED. DENIES ANY DISCOMFORT TO DR HELTON AND NEEDS TO INCREASE ACTIVITY AND TURNING . TO KEEP HER BUTTOCK, REVIEW CARE , AND PT IS ABLE TO FOCUS WITH HELP
[2018-12-21] MEDS: LISINOPRIL 40 MG TABLET PO SCH (10:06)
[2018-12-21] MEDS: HONEY 1 APPL/ML TUBE TP SCH (10:08)
[2018-12-21 12:00] VITALS: BP 129/69
[2018-12-21] MEDS: ACETAMINOPHEN 325 MG TAB PO PRN (15:10)
[2018-12-21 16:00] VITALS: BP 136/60
[2018-12-21 19:05] VITALS: BP 125/57
[2018-12-22 01:11] VITALS: BP 142/66
[2018-12-22] MEDS: ACETAMINOPHEN 325 MG TAB PO PRN ×3 (02:05→14:07)
[2018-12-22 04:05] VITALS: BP 141/66
[2018-12-22] MEDS: ZOSYN 3.375GM+NS 50ML 50 ML IV SCH (06:21)
[2018-12-22] MEDS: PANTOPRAZOLE SODIUM 40 MG TABLET.DR PO SCH (06:21)
[2018-12-22 08:00] VITALS: BP 131/58
[2018-12-22] MEDS: DILTIAZEM HCL 420 MG PO SCH (09:25)
[2018-12-22] MEDS: LISINOPRIL 40 MG TABLET PO SCH (09:26)
[2018-12-22] MEDS: HONEY 1 APPL/ML TUBE TP SCH (09:26)
[2018-12-22 11:57] VITALS: BP 124/56
--- NOTE | 2018-12-22 16:00 | NUR ---
DISCHARGE INSTRUCTIONS Patient had wound care instructions and also her family member did successful return demonstration for wound care as ordered by MD; for colostomy care and for emptying nephrostomy bag. Also, [facility] and supplies were given to patient for care. Patient and family members at bedside verbalized understanding of return demonstration. PICC line was removed from right upper arm intact and with no issues.
== END 2018-12-22 16:49 | disposition home or self-care (01) | DRG 710 ==
LOC: EDH 09:38 → OBSVTOIN 09:39 → EDHIP 09:39 → UNDOADMOB 13:46 → WSH 17:00 → 2BH 12-01 14:43 → 3BH 12-14 18:40
PROVIDERS: ADMIT Internal Medicine; ATTEND Internal Medicine
PROC: 5A1955Z Respiratory Ventilation, Greater than 96 Consecutive Hours (ICD-10-PCS; 2018-12-01)
PROC: 30233L1 Transfusion of Nonautologous Fresh Plasma into Peripheral Vein, Percutaneous Approach (ICD-10-PCS; 2018-12-01)
PROC: 30233N1 Transfusion of Nonautologous Red Blood Cells into Peripheral Vein, Percutaneous Approach (ICD-10-PCS; 2018-12-01)
PROC: 30233R1 Transfusion of Nonautologous Platelets into Peripheral Vein, Percutaneous Approach (ICD-10-PCS; 2018-12-01)
PROC: 30233M1 Transfusion of Nonautologous Plasma Cryoprecipitate into Peripheral Vein, Percutaneous Approach (ICD-10-PCS; 2018-12-01)
PROC: B4101ZZ Fluoroscopy of Abdominal Aorta using Low Osmolar Contrast (ICD-10-PCS; 2018-12-01)
PROC: B41G1ZZ Fluoroscopy of Left Lower Extremity Arteries using Low Osmolar Contrast (ICD-10-PCS; 2018-12-01)
PROC: 04LF3DZ Occlusion of Left Internal Iliac Artery with Intraluminal Device, Percutaneous Approach (ICD-10-PCS; 2018-12-01)
PROC: 0UT70ZZ Resection of Bilateral Fallopian Tubes, Open Approach (ICD-10-PCS; 2018-12-01)
PROC: 0UT20ZZ Resection of Bilateral Ovaries, Open Approach (ICD-10-PCS; 2018-12-01)
PROC: 04LE3DZ Occlusion of Right Internal Iliac Artery with Intraluminal Device, Percutaneous Approach (ICD-10-PCS; principal; 2018-12-01 09:12)
PROC: 0BH17EZ Insertion of Endotracheal Airway into Trachea, Via Natural or Artificial Opening (ICD-10-PCS; 2018-12-01 09:12)
PROC: 0DTN0ZZ Resection of Sigmoid Colon, Open Approach (ICD-10-PCS; 2018-12-04)
PROC: 0DBU0ZZ Excision of Omentum, Open Approach (ICD-10-PCS; 2018-12-04)
PROC: 0WBH0ZZ Excision of Retroperitoneum, Open Approach (ICD-10-PCS; 2018-12-04)
PROC: 0D1N0Z4 Bypass Sigmoid Colon to Cutaneous, Open Approach (ICD-10-PCS; 2018-12-06)
PROC: 0DH60UZ Insertion of Feeding Device into Stomach, Open Approach (ICD-10-PCS; 2018-12-06)
PROC: 5A09357 Assistance with Respiratory Ventilation, Less than 24 Consecutive Hours, Continuous Positive Airway Pressure (ICD-10-PCS; 2018-12-09)
PROC: 5A09357 Assistance with Respiratory Ventilation, Less than 24 Consecutive Hours, Continuous Positive Airway Pressure (ICD-10-PCS; 2018-12-10)
PROC: BT121ZZ Fluoroscopy of Left Kidney using Low Osmolar Contrast (ICD-10-PCS; 2018-12-19)
PROC: 0UT90ZZ Resection of Uterus, Open Approach (ICD-10-PCS; 2018-12-19)
PROC: 0T9430Z Drainage of Left Kidney Pelvis with Drainage Device, Percutaneous Approach (ICD-10-PCS; 2018-12-19)
DX: A41.9 Sepsis, unspecified organism (principal); J96.90 Respiratory failure, unspecified, unspecified whether with hypoxia or hypercapnia; L89.150 Pressure ulcer of sacral region, unstageable; C49.9 Malignant neoplasm of connective and soft tissue, unspecified; C49.5 Malignant neoplasm of connective and soft tissue of pelvis; N17.9 Acute kidney failure, unspecified; J44.9 Chronic obstructive pulmonary disease, unspecified; E87.0 Hyperosmolality and hypernatremia; C18.9 Malignant neoplasm of colon, unspecified; R58 Hemorrhage, not elsewhere classified; I95.9 Hypotension, unspecified; D62 Acute posthemorrhagic anemia; C56.9 Malignant neoplasm of unspecified ovary; D49.89 Neoplasm of unspecified behavior of other specified sites; N13.6 Pyonephrosis; N83.201 Unspecified ovarian cyst, right side; I10 Essential (primary) hypertension; N13.9 Obstructive and reflux uropathy, unspecified; N18.9 Chronic kidney disease, unspecified; I12.9 Hypertensive chronic kidney disease with stage 1 through stage 4 chronic kidney disease, or unspecified chronic kidney disease; Z93.3 Colostomy status; E87.6 Hypokalemia; I13.0 Hypertensive heart and chronic kidney disease with heart failure and stage 1 through stage 4 chronic kidney disease, or unspecified chronic kidney disease; Z93.1 Gastrostomy status; C76.2 Malignant neoplasm of abdomen; R62.7 Adult failure to thrive; I50.9 Heart failure, unspecified; L89.309 Pressure ulcer of unspecified buttock, unspecified stage; Z85.89 Personal history of malignant neoplasm of other organs and systems; Z93.6 Other artificial openings of urinary tract status; R19.00 Intra-abdominal and pelvic swelling, mass and lump, unspecified site; E87.8 Other disorders of electrolyte and fluid balance, not elsewhere classified
CPT/HCPCS: 36415; 36430; 36600; 37243; 50431; 71045; 74018; 74176; 75625; 80048; 80053; 81001; 82435; 82570; 82803; 82947; 82948; 83605; 83690; 83735; 83880; 84100; 84132; 84145; 84295; 84300; 85014; 85018; 85025; 85027; 85378; 85384; 85610; 85730; 86304; 86850; 86900; 86901; 86922; 86927; 87040; 87071; 87088; 87205; 88108; 88305; 88307; 88309; 88331; 88332; 93005; 94002; 94003; 97039; A4344; A5061; A5063; C1769; C1894; C9113; G0378; J0360; J0690; J0696; J1100; J1644; J1940; J2001; J2175; J2250; J2270; J2370; J2405; J2543; J2550; J2704; J2710; J3010; J3475; J3480; J3490; J7030; J7040; J7070; J7120; J7189; P9012; P9016; P9017; P9034; P9045; Q9967

== ENCOUNTER → 2018-12-26 | Outpatient (CLI) | payer MEDICAID ==
[~2018-12-26] MED LIST changes: +LIDOCAINE HCL 2% JELLY 5 ML TP ONE
[2018-12-26 12:25] VITALS: BP 113/74
== END | disposition home or self-care (01) ==
LOC: WHH 09:10
PROVIDERS: ATTEND Family Medicine
DX: L89.150 Pressure ulcer of sacral region, unstageable (principal); L89.320 Pressure ulcer of left buttock, unstageable; L89.310 Pressure ulcer of right buttock, unstageable; I13.0 Hypertensive heart and chronic kidney disease with heart failure and stage 1 through stage 4 chronic kidney disease, or unspecified chronic kidney disease; N18.9 Chronic kidney disease, unspecified; I50.9 Heart failure, unspecified; K21.9 Gastro-esophageal reflux disease without esophagitis; J44.9 Chronic obstructive pulmonary disease, unspecified; D64.9 Anemia, unspecified; E66.8 Other obesity; Z93.3 Colostomy status; Z93.6 Other artificial openings of urinary tract status; Z85.038 Personal history of other malignant neoplasm of large intestine; Z79.899 Other long term (current) drug therapy
CPT/HCPCS: G0463

== ENCOUNTER → 2019-01-16 | Outpatient (CLI) | payer MEDICAID ==
[~2019-01-16] MED LIST changes: +HONEY 1 APPL/ML TUBE TP ONE; -LIDOCAINE HCL 2% JELLY 5 ML TP ONE
[2019-01-16 10:36] VITALS: BP 139/84
== END | disposition home or self-care (01) ==
LOC: WHH 08:45
PROVIDERS: ATTEND Family Medicine
DX: L89.150 Pressure ulcer of sacral region, unstageable (principal); L89.320 Pressure ulcer of left buttock, unstageable; L89.310 Pressure ulcer of right buttock, unstageable; I13.0 Hypertensive heart and chronic kidney disease with heart failure and stage 1 through stage 4 chronic kidney disease, or unspecified chronic kidney disease; N18.9 Chronic kidney disease, unspecified; I50.9 Heart failure, unspecified; K21.9 Gastro-esophageal reflux disease without esophagitis; J44.9 Chronic obstructive pulmonary disease, unspecified; D64.9 Anemia, unspecified; E66.8 Other obesity; Z93.3 Colostomy status; Z93.6 Other artificial openings of urinary tract status; Z85.038 Personal history of other malignant neoplasm of large intestine; Z79.899 Other long term (current) drug therapy
CPT/HCPCS: 11042; 11045

== ENCOUNTER → 2019-01-29 | Outpatient (CLI) | payer SELFPAY ==
[~2019-01-29] MED LIST changes: +LIDOCAINE HCL 2% JELLY 5 ML TP ONE
[2019-01-29 13:50] VITALS: BP 149/71
== END | disposition home or self-care (01) ==
LOC: WHH 09:08
PROVIDERS: ATTEND Family Medicine
DX: L89.150 Pressure ulcer of sacral region, unstageable (principal); L89.320 Pressure ulcer of left buttock, unstageable; L89.310 Pressure ulcer of right buttock, unstageable; I13.0 Hypertensive heart and chronic kidney disease with heart failure and stage 1 through stage 4 chronic kidney disease, or unspecified chronic kidney disease; I50.9 Heart failure, unspecified; N18.9 Chronic kidney disease, unspecified; K21.9 Gastro-esophageal reflux disease without esophagitis; J44.9 Chronic obstructive pulmonary disease, unspecified; D64.9 Anemia, unspecified; E66.8 Other obesity; Z93.3 Colostomy status; Z85.038 Personal history of other malignant neoplasm of large intestine; Z79.899 Other long term (current) drug therapy
CPT/HCPCS: 11042; 11045; 36415; 85651; 86140; 87070; 87077; 87186

== ENCOUNTER → 2019-02-12 | Outpatient (CLI) | payer SELFPAY ==
[2019-02-12 13:19] VITALS: BP 165/97
== END | disposition home or self-care (01) ==
LOC: WHH 09:55
PROVIDERS: ATTEND Family Medicine
DX: L89.150 Pressure ulcer of sacral region, unstageable (principal); L89.320 Pressure ulcer of left buttock, unstageable; L89.310 Pressure ulcer of right buttock, unstageable; I13.0 Hypertensive heart and chronic kidney disease with heart failure and stage 1 through stage 4 chronic kidney disease, or unspecified chronic kidney disease; I50.9 Heart failure, unspecified; N18.9 Chronic kidney disease, unspecified; K21.9 Gastro-esophageal reflux disease without esophagitis; J44.9 Chronic obstructive pulmonary disease, unspecified; D64.9 Anemia, unspecified; E66.8 Other obesity; Z93.3 Colostomy status; Z85.038 Personal history of other malignant neoplasm of large intestine; Z79.899 Other long term (current) drug therapy
CPT/HCPCS: 11042; 11045; 97597; 97598

== ENCOUNTER → 2019-02-23 | Outpatient (CLI) | payer SELFPAY ==
[~2019-02-23] MED LIST changes: -HONEY 1 APPL/ML TUBE TP ONE; -LIDOCAINE HCL 2% JELLY 5 ML TP ONE
[2019-02-23 13:23] VITALS: BP_SYST 129
== END | disposition home or self-care (01) ==
LOC: WHH 09:00
PROVIDERS: ATTEND Family Medicine
DX: L89.324 Pressure ulcer of left buttock, stage 4 (principal); L89.150 Pressure ulcer of sacral region, unstageable; I13.0 Hypertensive heart and chronic kidney disease with heart failure and stage 1 through stage 4 chronic kidney disease, or unspecified chronic kidney disease; N18.9 Chronic kidney disease, unspecified; I50.9 Heart failure, unspecified; L89.310 Pressure ulcer of right buttock, unstageable; J44.9 Chronic obstructive pulmonary disease, unspecified; K21.9 Gastro-esophageal reflux disease without esophagitis; D64.9 Anemia, unspecified; E66.8 Other obesity; Z79.899 Other long term (current) drug therapy; Z93.3 Colostomy status; Z93.6 Other artificial openings of urinary tract status; Z85.038 Personal history of other malignant neoplasm of large intestine
CPT/HCPCS: 99215

== ENCOUNTER 2019-02-25 13:20 | Emergency (ER) | payer MEDICAID | END 2019-02-25 14:56 | disposition home or self-care (01) | LOC: EDH 13:20 | DX: R82.998 Other abnormal findings in urine (principal); K21.9 Gastro-esophageal reflux disease without esophagitis | CPT/HCPCS: 99281 ==

== ENCOUNTER → 2019-03-02 | Outpatient (CLI) | payer SELFPAY ==
[~2019-03-02] MED LIST changes: +LIDOCAINE HCL 2% JELLY 5 ML TP ONE
[2019-03-02 13:56] VITALS: BP 126/69
== END | disposition home or self-care (01) ==
LOC: WHH 08:45
PROVIDERS: ATTEND Family Medicine
DX: L89.324 Pressure ulcer of left buttock, stage 4 (principal); L89.319 Pressure ulcer of right buttock, unspecified stage; I13.0 Hypertensive heart and chronic kidney disease with heart failure and stage 1 through stage 4 chronic kidney disease, or unspecified chronic kidney disease; N18.9 Chronic kidney disease, unspecified; I50.9 Heart failure, unspecified; K21.9 Gastro-esophageal reflux disease without esophagitis; J44.9 Chronic obstructive pulmonary disease, unspecified; R82.998 Other abnormal findings in urine; E66.9 Obesity, unspecified; E66.8 Other obesity; Z79.899 Other long term (current) drug therapy; Z93.3 Colostomy status; Z93.6 Other artificial openings of urinary tract status; Z85.038 Personal history of other malignant neoplasm of large intestine; Z85.44 Personal history of malignant neoplasm of other female genital organs
CPT/HCPCS: 11043; 11046; G0463